=== PATIENT | female | born 1985 | race Caucasian/White ===

== ENCOUNTER 2016-12-28 13:38 | Emergency (ER) | payer OTHER ==
[2016-12-28] MEDS ORDERED: IBUPROFEN 800 MG TABLET PO STA (14:06)
[2016-12-28] MEDS ORDERED: IBUPROFEN 800 MG TABLET PO ONE (14:24)
== END 2016-12-28 15:01 | disposition home or self-care (01) ==
DX: M25.561 Pain in right knee (principal)
CPT/HCPCS: 73564; 99283; A9270

== ENCOUNTER 2017-06-02 09:35 | Emergency (ER) | payer OTHER ==
--- NOTE | 2017-06-02 11:18 | ED Physician Documentation ---
PD HPI HEADACHE - Stated complaint Stated Complaint: MIGRAINE/EAR PX - Chief complaint Chief Complaint: Neuro - History obtained from History obtained from: Patient - History of Present Illness Timing - onset: Last night Timing - onset during: Rest Timing - details: Gradual onset, Still present Worst headache ever?: No: Worst headache ever? Location: Left Quality: Throbbing, Aching Associated symptoms: No: Fever, Nausea, Vomiting Improved by: Dark room, Quiet. No: Rest Worsened by: Light, Noise Contributing factors: No: Anticoagulated, Hypertension, Trauma Similar symptoms before: Diagnosis (migraines) Review of Systems Constitutional: denies: Fever, Chills Eyes: reports: Photophobia. denies: Loss of vision, Decreased vision Ears: reports: Ear pain (left side today). 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 APPRENTICE: Endometrial ablation, Hysterectomy, Oophrectomy HEENT: Tonsil/Adenoidectomy - Present Medications Home Medications: Ambulatory Orders Medication Instructions Recorded Confirmed Albuterol [Ventolin Hfa] 2 puffs PO Q4H PRN 03/31/14 06/02/17 Topiramate [Topiramate ER] 25 mg PO DAILY 10/02/14 06/02/17 Fexofenadine [Corine] 180 mg PO DAILY 02/03/15 06/02/17 Fluticasone/Salmeterol 100/50 1 puffs PO BID 02/03/15 06/02/17 [Advair 100 Mcg/50 Mcg] Divalproex ER [Depakote ER] 250 mg PO DAILY 08/06/16 06/02/17 Montelukast [Singulair] 10 mg PO QPM 08/06/16 06/02/17 Metoclopramide [Reglan] 10 mg PO Q8H PRN #20 tablet 06/02/17 Naproxen [Naprosyn] 500 mg PO BID PRN #20 tablet 06/02/17 - Allergies Allergies/Adverse Reactions: Allergies Allergy/AdvReac Type Severity Reaction Status Date / Time cinnamon Allergy Unknown Verified 12/28/16 13:44 - Social History Does the pt smoke?: No Smoking Status: Never smoker Does the pt drink ETOH?: Yes Does the pt have substance abuse?: No - Immunizations Immunizations are current?: Yes - POLST Patient has POLST: No PD ED PE NORMAL - Vitals Vital signs reviewed: Yes - General General: Alert and oriented X 3, No acute distress, Well developed/nourished - HEENT HEENT: Ears normal, Moist mucous membranes, Pharynx benign - Neck Neck: Supple, no meningeal sign, No adenopathy - Cardiac Cardiac: RRR, No murmur - Respiratory Respiratory: Clear bilaterally - Derm Derm: Normal color, Warm and dry, No rash - Neuro Neuro: Alert and oriented X 3, ward secretary 2-12 intact, No motor deficit, No sensory deficit, Normal speech - Psych Psych: Normal mood, Normal affect Results - Vitals Vitals: Oxygen O2 Source Room air PD MEDICAL DECISION MAKING - ED course Complexity details: re-evaluated patient (feels better; headache about gone. ), considered differential (ear appears okay and no rash. Presume related to migraine, but will see if other symptoms develop. Migrain improved with meds in ED. ), d/w patient Departure - Departure Disposition: 01 Home, Self Care Clinical Impression: Migraine Qualifiers: Migraine type: without aura Status migrainosus presence: without status migrainosus Intractability: not intractable Qualified Code(s): G43.009 - Migraine without aura, not intractable, without status migrainosus Condition: Stable Record reviewed to determine appropriate education?: Yes Instructions: ED Headache Migraine Follow-Up: Kagn Winters MD [Primary Care Provider] - Prescriptions: Naproxen [Naprosyn] 500 mg PO BID PRN #20 tablet PRN Reason: Headache Metoclopramide [Reglan] 10 mg PO Q8H PRN #20 tablet PRN Reason: Headache Comments: Continue usual medications. Drink lots of fluids today. Rest off work today. For subsequent migraines she can try naproxen plus metoclopramide in combination and see if that tapers the migraine over 20 or 30 minutes. Return to the ER as needed. Forms: Activity restrictions Discharge Date/Time: 06/02/17 13:37
[2017-06-02] MEDS ORDERED: SODIUM CHLORIDE 0.9% 1,000 ML IV ONE (11:39)
[2017-06-02] MEDS ORDERED: DEXAMETHASONE 10 MG/ML VIAL IVP STA (11:39)
[2017-06-02] MEDS ORDERED: KETOROLAC 60 MG/2 ML VIAL IVP STA (11:39)
[2017-06-02] MEDS ORDERED: diphenhydrAMINE INJ 50 MG/ML VIAL IVP STA (11:39)
[2017-06-02] MEDS ORDERED: PROCHLORPERAZINE 10 MG/2 ML VIAL IVP STA (11:39)
[2017-06-02] MEDS ORDERED: diphenhydrAMINE INJ 50 MG/ML VIAL ONE (11:47)
[2017-06-02] MEDS ORDERED: KETOROLAC 30 MG/ML VIAL ONE (11:47)
[2017-06-02] MEDS ORDERED: PROCHLORPERAZINE 10 MG/2 ML VIAL ONE (11:47)
[2017-06-02] MEDS ORDERED: DEXAMETHASONE 10 MG/ML VIAL ONE (11:47)
[2017-06-02 13:26] VITALS: BP 109/67
== END 2017-06-02 13:37 | disposition home or self-care (01) ==
LOC: ED 09:35
DX: G43.909 Migraine, unspecified, not intractable, without status migrainosus (principal)
CPT/HCPCS: 96361; 96374; 96375; 99284

== ENCOUNTER 2018-03-15 09:22 | Outpatient (CLI) | payer OTHER ==
--- NOTE | 2018-03-15 13:43 | MRI Report ---
Procedure Date: 03/15/2018 Accession Number: [id number] / [id number] Procedure: MRI - Wrist RT W/O CPT Code: FULL RESULT: EXAM: RIGHT WRIST MRI WITHOUT CONTRAST EXAM DATE: 03/15/2018 09:56 AM. CLINICAL HISTORY: Chronic wrist pain. COMPARISON: None. TECHNIQUE: Multiplanar, multisequence T1-weighted and fluid-sensitive sequences of the wrist without contrast. Other: None. FINDINGS: Bones: There is slightly increased T2 signal in the proximal pole of the lunate. Marrow signal in the remainder of the carpus and the distal radius and ulna appears normal. Ulnar negative variance. Cartilage: The articular cartilage is unremarkable. There is an oblique full-thickness tear through the TFC. There is fluid in the distal radioulnar joint. The anterior and posterior radioulnar ligaments are intact. Ligaments: The scapholunate and lunotriquetral ligaments are intact. The visualized other intrinsic, extrinsic and collateral ligaments are unremarkable. Tendons: The extensor compartment I through and flexor tendons are unremarkable. Musculature: No edema or fatty atrophy. Other: The contents of the carpal tunnel, including the median nerve, are unremarkable. Guyons canal is unremarkable. There is an 8 x 4 x 6 mm ganglion cyst anterior to the radial styloid process. No joint effusions. The subcutaneous tissues are unremarkable. IMPRESSION: 1. Ulnar negative variance. 2. Oblique full-thickness tear of the TFC. 3. Ganglion cyst anterior to the radial styloid process. 4. High T2 signal in the proximal pole of the lunate may indicate prior trauma or low-grade degenerative change secondary to the TFC tear. [facility] MUSCULOSKELETAL RADIOLOGY SECTION
== END 2018-03-15 09:23 | disposition home or self-care (01) ==
LOC: DI 09:22
PROVIDERS: ATTEND Orthopaedic Surgery
DX: S63.591A Other specified sprain of right wrist, initial encounter (principal); M67.431 Ganglion, right wrist

== ENCOUNTER 2018-04-17 14:02 | Emergency (ER) | payer OTHER ==
--- NOTE | 2018-04-17 15:48 | ED Physician Documentation ---
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 Not aware of injury per se. Pain steady.). No: Fall Where injury occurred: Work Timing - onset: Today Timing - details: Abrupt onset, Still present Quality: Pain, Spasm Worsened by: Moving. No: Palpating Associated symptoms: No: Fever, Weakness, Numbness, Hematuria Contributing factors: Work related Similar symptoms before: Has not had sx before Recently seen: Not recently seen Review of Systems Constitutional: denies: Fever Nose: denies: Rhinorrhea / runny nose, Congestion Throat: denies: Sore throat Cardiac: denies: Chest pain / pressure, Palpitations Respiratory: denies: Dyspnea, Cough GI: reports: Nausea. 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 DIRECTOR: Endometrial ablation, Hysterectomy, Oophrectomy HEENT: Tonsil/Adenoidectomy - Present Medications Home Medications: Ambulatory Orders Medication Instructions Recorded Confirmed Albuterol [Ventolin Hfa] 2 puffs PO Q4H PRN 03/31/14 06/02/17 Fexofenadine [Corine] 180 mg PO DAILY 02/03/15 06/02/17 Fluticasone/Salmeterol 100/50 1 puffs PO BID 02/03/15 06/02/17 [Advair 100 Mcg/50 Mcg] Montelukast [Singulair] 10 mg PO QPM 08/06/16 06/02/17 Metoclopramide [Reglan] 10 mg PO Q8H PRN #20 tablet 06/02/17 HYDROcod/ACETAM 5/325 [[place] 5/325] 1 tab PO Q6H PRN #15 tablet 04/17/18 Methocarbamol [Robaxin] 500 mg PO Q6H PRN #25 tablet 04/17/18 Naproxen [Naprosyn] 500 mg PO BID PRN #20 tablet 04/17/18 - Allergies Allergies/Adverse Reactions: Allergies Allergy/AdvReac Type Severity Reaction Status Date / Time cinnamon Allergy Unknown Verified 04/17/18 14:06 - Social History Does the pt smoke?: No Smoking Status: Never smoker Does the pt drink ETOH?: Yes Does the pt have substance abuse?: No - Immunizations Immunizations are current?: Yes - POLST Patient has POLST: No PD ED PE NORMAL - Vitals Vital signs reviewed: Yes - General General: Alert and oriented X 3, No acute distress, Well developed/nourished - Cardiac Cardiac: RRR, No murmur - Respiratory Respiratory: Clear bilaterally - Abdomen Abdomen: Soft, Non tender - Back Back: No spinal TTP, Other (tender right flank and upper lumbar area. ) - Derm Derm: Normal color, Warm and dry - Extremities Extremities: No deformity, No tenderness to palpate - Neuro Neuro: Alert and oriented X 3, No motor deficit, No sensory deficit, Normal speech Results - Vitals Vitals: Oxygen O2 Source Room air - Rads (name of study) kub CT Radiology: Prelim report reviewed (no stones nor other acute process) PD MEDICAL DECISION MAKING - ED course Complexity details: considered differential (abrupt pain without obvious injury per se. Eval for kidney process and stones, but no other findings. ), d/w patient - Sepsis Event Vital Signs: Oxygen O2 Source Room air Departure - Departure Disposition: 01 Home, Self Care Clinical Impression: Acute back pain Qualifiers: Back pain location: low back pain Back pain laterality: right Sciatica presence : without sciatica Qualified Code(s): M54.5 - Low back pain Condition: Stable Record reviewed to determine appropriate education?: Yes Instructions: ED Low Back Pain Injury Follow-Up: DK CALL DO [Primary Care Provider] - Prescriptions: HYDROcod/ACETAM 5/325 [[place] 5/325] 1 tab PO Q6H PRN #15 tablet PRN Reason: Pain Methocarbamol [Robaxin] 500 mg PO Q6H PRN #25 tablet PRN Reason: Spasms Naproxen [Naprosyn] 500 mg PO BID PRN #20 tablet PRN Reason: Pain Comments: Presume muscular strain/spasm. No signs of kidney stone or other cause on CT. Rest off work for 2-3 days. Heat and gentle stretching to the area. Naproxen or ibuprofen 2-3 times a day for inflammation and pain. Add Robaxin muscle relaxant. Add Tylenol or hydrocodone if needed for pain. Recheck if not improved over the next few days, call tomorrow with your PCP for an appointment in a few days. Forms: Activity restrictions Discharge Date/Time: 04/17/18 18:01
[2018-04-17] MEDS ORDERED: MORPHINE 10 MG/ML VIAL IM STA (16:07)
[2018-04-17] MEDS ORDERED: KETOROLAC 30 MG/ML VIAL IM STA (16:07)
[2018-04-17] MEDS ORDERED: METHOCARBAMOL 500 MG TABLET PO STA (16:07)
--- NOTE | 2018-04-17 17:01 | CT Report ---
Procedure Date: 04/17/2018 Accession Number: [id number] / [id number] Procedure: CT - KUB CPT Code: FULL RESULT: EXAM: CT ABDOMEN AND PELVIS EXAM DATE: 04/17/2018 04:32 PM. CLINICAL HISTORY: Right flank pain and nausea which began today. COMPARISONS: 12/02/2015. TECHNIQUE: Routine helical CT imaging was performed through the abdomen and pelvis. IV contrast: None. Enteric contrast: No. Reconstructions: Coronal and sagittal. In accordance with CT protocol optimization, one or more of the following dose reduction techniques were utilized for this exam: automated exposure control, adjustment of mA and/or KV based on patient size, or use of iterative reconstructive technique. FINDINGS: Lung Bases: Unremarkable. Liver: Normal. No masses. Gallbladder/Bile Ducts: Cholecystectomy. No biliary duct dilatation. Spleen: Normal. Pancreas: Normal. Adrenal Glands: Normal. Kidneys: Normal. No masses or hydronephrosis. No stones. Normal ureters. Peritoneal Cavity/Bowel: Normal. No free fluid, free air or adenopathy. No masses or acute inflammatory process. The appendix is well visualized and normal. Pelvic Organs: Piercing anterior aspect of the vulva. The bladder and visualized pelvic organs are within normal limits. Vasculature: No aneurysms or other significant abnormality. Bones: No significant abnormality. Other: None. IMPRESSION: Stable, unremarkable exam. No radiographic explanation for this lady's presenting symptoms. [facility]
[2018-04-17 18:03] VITALS: BP 142/99
== END 2018-04-17 18:01 | disposition home or self-care (01) ==
LOC: ED 14:02
DX: M54.5 Low back pain (principal); J45.909 Unspecified asthma, uncomplicated
CPT/HCPCS: 74176; 96372; 99283; A9270

== ENCOUNTER 2018-08-27 06:56 | Emergency (ER) | payer OTHER ==
[2018-08-27] MEDS ORDERED: fentaNYL 100 MCG/2 ML VIAL IVP STA ×2 (07:19→09:22)
[2018-08-27] MEDS ORDERED: KETOROLAC 15 MG/ML VIAL IVP STA (07:19)
[2018-08-27] MEDS ORDERED: SODIUM CHLORIDE 0.9% 1,000 ML IV ONE (07:19)
[2018-08-27] MEDS ORDERED: ONDANSETRON 4 MG/2 ML VIAL IVP STA (07:20)
--- NOTE | 2018-08-27 07:28 | ED Physician Documentation ---
History of Present Illness - Stated complaint Stated Complaint: RT SIDE PX - Chief complaint Chief Complaint: Abd Pain - Additonal information Additional information: 33-year-old female presents the emergency department with right lower flank pain which radiates into her abdomen. The patient reports intermittent sharp stabbing pain for the past 4-5 days which has progressively worsened. There is no vomiting, diarrhea, dysuria, hematuria, vaginal discharge or continuous abdominal pain. No triggering factors. No relieving factors. No other associated symptoms. 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 - Past Surgical History Past Surgical History: Yes General: Cholecystectomy /JUDGE: Endometrial ablation, Hysterectomy, Oophrectomy HEENT: Tonsil/Adenoidectomy - Present Medications Home Medications: Ambulatory Orders Medication Instructions Recorded Confirmed Albuterol [Ventolin Hfa] 2 puffs PO Q4H PRN 03/31/14 06/02/17 Fexofenadine [Corine] 180 mg PO DAILY 02/03/15 06/02/17 Fluticasone/Salmeterol 100/50 1 puffs PO BID 02/03/15 06/02/17 [Advair 100 Mcg/50 Mcg] Montelukast [Singulair] 10 mg PO QPM 08/06/16 06/02/17 Metoclopramide [Reglan] 10 mg PO Q8H PRN #20 tablet 06/02/17 HYDROcod/ACETAM 5/325 [[place] 5/325] 1 tab PO Q6H PRN #15 tablet 04/17/18 Methocarbamol [Robaxin] 500 mg PO Q6H PRN #25 tablet 04/17/18 Naproxen [Naprosyn] 500 mg PO BID PRN #20 tablet 04/17/18 Hydrocodone/Acetaminophen [[place] 1 each PO Q6HR PRN #10 tablet 08/27/18 5-325 Tablet] Naproxen 500 mg PO BID PRN #60 tablet 08/27/18 Ondansetron HCl [Zofran] 4 mg PO Q6HR PRN #30 tablet 08/27/18 - Allergies Allergies/Adverse Reactions: Allergies Allergy/AdvReac Type Severity Reaction Status Date / Time cinnamon Allergy Unknown Verified 04/17/18 14:06 - Social History Does the pt smoke?: No Smoking Status: Never smoker Does the pt drink ETOH?: Yes Does the pt have substance abuse?: No - Immunizations Immunizations are current?: Yes - POLST Patient has POLST: No PD ED PE NORMAL - General General: Alert and oriented X 3, No acute distress - HEENT HEENT: Atraumatic, PERRL, Moist mucous membranes - Neck Neck: Supple, no meningeal sign - Cardiac Cardiac: RRR, Strong equal pulses - Respiratory Respiratory: No respiratory distress, Clear bilaterally - Abdomen Abdomen: Soft, Non tender, Non distended, Other (The patient has right lower flank tenderness) - Back Back: No CVA TTP - Derm Derm: Normal color - Extremities Extremities: No deformity - Neuro Neuro: Alert and oriented X 3, Normal speech - Psych Psych: Normal mood Results - Vitals Vitals: Vital Signs - 24 hr 08/27/18 08/27/18 08/27/18 07:02 08:15 09:06 Temperature 36.1 C L Heart Rate 72 58 L 60 Respiratory 16 16 16 Rate Blood Pressure 124/89 H 106/78 104/75 O2 Saturation 100 100 100 08/27/18 10:39 Temperature Heart Rate 58 L Respiratory 16 Rate Blood Pressure 104/71 O2 Saturation 99 Oxygen O2 Source Room air - Labs Labs: Laboratory Tests 08/27/18 08/27/18 08/27/18 07:41 07:41 09:13 WBC 5.5 RBC 4.55 Hgb 13.7 Hct 39.7 MCV 87.4 MCH 30.2 MCHC 34.5 RDW 13.2 Plt Count 222 MPV 8.8 Neut # (Auto) 3.8 Lymph # (Auto) 1.0 L [place] # (Auto) 0.4 Eos # (Auto) 0.3 Baso # (Auto) 0.0 Absolute Nucleated RBC 0.00 Nucleated RBC % 0.0 Sodium 133 L Potassium 4.3 Chloride 103 Carbon Dioxide 27 Anion Gap 3.0 L BUN 19 Creatinine 0.5 Estimated GFR (MDRD) 142 Glucose 105 H Calcium 8.7 Total Bilirubin 0.7 AST 18 ALT 16 Alkaline Phosphatase 39 L Total Protein 7.3 Albumin 4.4 Globulin 2.9 Albumin/Globulin Ratio 1.5 Lipase 24 Urine Color YELLOW Urine Clarity CLEAR Urine pH 5.5 Ur Specific [place] 1.025 Urine Protein NEGATIVE Urine Glucose (UA) NEGATIVE Urine Ketones 15 H Urine Occult Blood NEGATIVE Urine Nitrite NEGATIVE Urine Bilirubin NEGATIVE Urine Urobilinogen 0.2 (NORMAL) Ur Leukocyte Esterase NEGATIVE Ur Microscopic Review NOT INDICATED Urine Culture Comments NOT INDICATED - Rads (name of study) US Radiology: Final report received (IMPRESSION: 1. Interval enlarged right ovary containing a simple cyst, 6.1 cm in the maximum dimension without evidence of right ovarian torsion, which could be the dominate follicle cyst; however, a low aggressive or benign cystic neoplasm cannot be excluded; recommend clinical follow-up and follow-up pelvic ultrasound in 6 weeks. 2. Interval status post left oophorectomy and hysterectomy, unremarkable.) CT abd/pelvis Radiology: Final report received (IMPRESSION: 1.No urinary tract stones or obstruction. 2. Normal appendix. No bowel obstruction or inflammatory change. 3. A new medial right pelvic cystic mass, likely from the right ovary, 6.3 cm in maximum dimension, concerning for ovarian torsion versus cystic ovarian neoplasm. Recommend urgent pelvic ultrasound follow-up. 4. Status post cholecystectomy, unremarkable. ) PD MEDICAL DECISION MAKING - ED course ED course: The patient's workup does not reveal an etiology that would necessitate admissio n to the hospital or acute surgical consultation. On reevaluation the patient is resting comfortably in her pain appears to be under control. Presently the patient appears appropriate for discharge and ongoing outpatient management. I discussed with her the findings on the ultrasound and CT scan. I discussed with her the recommendations from the radiologist. I discussed warning signs and recommended returning to the emergency department for any worsening or any concerns. Departure - Departure Disposition: 01 Home, Self Care Clinical Impression: Flank pain, acute Abdominal pain Qualifiers: Abdominal location: right lower quadrant Qualified Code(s): R10.31 - Right lower quadrant pain Condition: Good Instructions: Abdominal Pain, Cysts Ovarian Follow-Up: DK CALL, [Primary Care Provider] - Within 1 week (Please have your primary care repeat an ultrasound in 6 weeks to make sure that the cyst resolves.) Prescriptions: Hydrocodone/Acetaminophen [[place] 5-325 Tablet] 1 each PO Q6HR PRN #10 tablet PRN Reason: Pain Ondansetron HCl [Zofran] 4 mg PO Q6HR PRN #30 tablet PRN Reason: Nausea / Vomiting Naproxen 500 mg PO BID PRN #60 tablet PRN Reason: Pain Comments: Please return to the emergency department for worsening symptoms or any concerns
[2018-08-27 07:46] LABS: BASOPHILS % (AUTO) 0.7 %; EOSINOPHILS # (AUTO) 0.3 10^3/uL (0.0-0.7); EOSINOPHILS % (AUTO) 4.8 %; HGB - HEMOGLOBIN 13.7 g/dL (12.0-16.0); LYMPHOCYTES % (AUTO) 18.1 %; MEAN CORPUSCULAR HEMOGLOBIN 30.2 pg (27.0-31.0); MEAN CORPUSCULAR HGB CONC 34.5 g/dL (32.0-36.0); MEAN CORPUSCULAR VOLUME 87.4 fL (81.0-99.0); MEAN PLATELET VOLUME 8.8 fL (7.9-10.8); MONOCYTES # (AUTO) 0.4 10^3/uL (0.0-1.0); MONOCYTES % (AUTO) 6.5 %; NEUTROPHILS # (AUTO) 3.8 10^3/uL (1.5-6.6); NEUTROPHILS % (AUTO) 69.9 %; PLT - PLATELET COUNT 222 10^3/uL (130-450); RED BLOOD COUNT 4.55 10^6/uL (4.20-5.40); RED CELL DISTRIBUTION WIDTH 13.2 % (12.0-15.0); WHITE BLOOD COUNT 5.5 x10^3/uL (4.8-10.8)
[2018-08-27 07:58] LABS: ALBUMIN 4.4 g/dL (3.2-5.5); ALBUMIN/GLOBULIN RATIO 1.5 (1.0-2.2); BILIRUBIN,TOTAL 0.7 mg/dL (0.2-1.0); CALCIUM 8.7 mg/dL (8.5-10.3); CREATININE 0.5 mg/dL (0.4-1.0); TOTAL PROTEIN 7.3 g/dL (6.7-8.2)
--- NOTE | 2018-08-27 08:24 | CT Report ---
Reason: flank pain Procedure Date: 08/27/2018 Accession Number: [id number] / [id number] Procedure: CT - Abdomen/Pelvis W/O CPT Code: FULL RESULT: EXAM: CT ABDOMEN AND PELVIS (CT KUB) EXAM DATE: 08/27/2018 07:51 AM. CLINICAL HISTORY: Right low abdominal pain, flank pain for 3-4 days. COMPARISONS: KUB 04/17/2018. TECHNIQUE: Routine axial helical CT imaging was performed through the abdomen and pelvis without IV contrast. Reconstructions: Coronal and sagittal. In accordance with CT protocol optimization, one or more of the following dose reduction techniques were utilized for this exam: automated exposure control, adjustment of mA and/or KV based on patient size, or use of iterative reconstructive technique. FINDINGS: Lung Bases: Unremarkable. Right Kidney/Ureter: No stones, hydronephrosis, or hydroureter. No perinephric fat stranding. Left Kidney/Ureter: No stones, hydronephrosis, or hydroureter. No perinephric fat stranding. Other Solid Organs: Noncontrast images of the solid organs are grossly unremarkable. Gallbladder/Bile Ducts: Status post cholecystectomy again noted, unremarkable. Peritoneal Cavity: No free fluid, free air or destiny adenopathy. Bowel is grossly unremarkable. The appendix is normal. Pelvic Organs: There is a new cystic mass in the medial posterior right pelvis, likely connected with the right ovarian vein, abutting the posterior portion of the uterus, 6 x 6.3 x 4.5 cm. No bladder stones or wall thickening. Noncontrast images of the visualized pelvic organs are unremarkable. Vasculature: Unremarkable. Other: No hernia seen. IMPRESSION: 1.No urinary tract stones or obstruction. 2. Normal appendix. No bowel obstruction or inflammatory change. 3. A new medial right pelvic cystic mass, likely from the right ovary, 6.3 cm in maximum dimension, concerning for ovarian torsion versus cystic ovarian neoplasm. Recommend urgent pelvic ultrasound follow-up. 4. Status post cholecystectomy, unremarkable. CRITICAL RESULT: The finding of a new medial right pelvic cystic mass, concerning for right ovarian torsion versus right ovarian neoplasm was discussed on the phone with clinical provider, Dr. Sasha Jason on 08/27/2018 at 8:28 AM. JOSE R
[2018-08-27 09:17] LABS: BILIRUBIN,URINE NEGATIVE (NEGATIVE); GLUCOSE, URINE (UA) NEGATIVE (NEGATIVE); KETONES,URINE (UA) 15 mg/dL (NEGATIVE); LEUKOCYTE ESTERASE, URINE NEGATIVE (NEGATIVE); NITRITE,URINE NEGATIVE (NEGATIVE); OCCULT BLOOD,URINE NEGATIVE (NEGATIVE); PH,URINE 5.5 PH (5.0-7.5); PROTEIN,URINE NEGATIVE (NEGATIVE); UROBILINOGEN,URINE 0.2 (NORMAL) E.U./dL (NORMAL)
[2018-08-27 09:18] LABS: CLARITY,URINE CLEAR (CLEAR)
--- NOTE | 2018-08-27 11:34 | Ultrasound Report ---
Reason: pelvic pain, R Procedure Date: 08/27/2018 Accession Number: [id number] / [id number] Procedure: US - Pelvic w/Transvag+Doppler Comp CPT Code: FULL RESULT: EXAM: PELVIC ULTRASOUND EXAM DATE: 08/27/2018 10:15 AM. CLINICAL HISTORY: Pelvic pain on the right side, status post hysterectomy and left oophorectomy; right pelvic cystic mass shown in the same day abdominopelvic CT, follow-up. COMPARISON: 04/01/2015. TECHNIQUE: Realtime transabdominal pelvic scan performed to identify the uterus and adnexa and as an overview of other pelvic structures, followed by transvaginal scan to provide greater detail of the uterus and adnexa, with static image documentation. FINDINGS: Uterus: Surgically absent, unremarkable. Right Ovary: 6.8 x 4.5 x 6.7 cm, volume 107.2 cc, previously 9 cc. There is a simple cystic lesion, 6.1 x 5.4 x 4.3 cm; the small peripheral solid parenchyma of the right ovary demonstrated normal Doppler blood flow. Left Ovary: Surgically absent; no left adnexal mass. Free Fluid: None. IMPRESSION: 1. Interval enlarged right ovary containing a simple cyst, 6.1 cm in the maximum dimension without evidence of right ovarian torsion, which could be the dominate follicle cyst; however, a low aggressive or benign cystic neoplasm cannot be excluded; recommend clinical follow-up and follow-up pelvic ultrasound in 6 weeks. 2. Interval status post left oophorectomy and hysterectomy, unremarkable. [facility]
[2018-08-27 12:11] VITALS: BP 104/75
== END 2018-08-27 12:14 | disposition home or self-care (01) ==
LOC: ED 06:56
DX: N83.201 Unspecified ovarian cyst, right side (principal)
CPT/HCPCS: 36415; 74176; 76830; 76856; 80053; 81001; 81003; 83690; 85025; 87086; 93975; 96361; 96374; 96376; 99283

== ENCOUNTER 2018-09-18 12:41 | Day surgery (SDC) | payer OTHER ==
--- NOTE | 2018-09-18 15:40 | ED Physician Documentation ---
History of Present Illness - Stated complaint Stated Complaint: FEMALE - Chief complaint Chief Complaint: Abd Pain - Additonal information Additional information: hx from pt 33 f s/p hyst L ooph jeanine known 6 cm R ovarian cyst abrupt onset abd pain this AM 730 AM no fever no vag bleed feels faint fears torsion Review of Systems Constitutional: denies: Fever Cardiac: denies: Chest pain / pressure Respiratory: denies: Dyspnea GI: reports: Abdominal Pain : reports: Hysterectomy. denies: Discharge, Vaginal bleeding Endocrine: denies: Easy bruising / bleeding Immunocompromised: denies: Immunocompromised PD PAST MEDICAL HISTORY - Past Medical History Respiratory: Asthma Neuro: Migraines Endocrine/Autoimmune: None WOOD GLUER: Ovarian cysts - Past Surgical History Past Surgical History: Yes General: Cholecystectomy /WOOD GLUER: Endometrial ablation, Hysterectomy, Oophrectomy HEENT: Tonsil/Adenoidectomy - Present Medications Home Medications: Ambulatory Orders Medication Instructions Recorded Confirmed Fexofenadine [Corine] 180 mg PO DAILY 02/03/15 09/18/18 Montelukast [Singulair] 10 mg PO QPM 08/06/16 09/18/18 Cholecalciferol (Vitamin D3) 1 cap PO DAILY 09/18/18 09/18/18 [Vitamin D3] Loratadine [Claritin] 10 mg PO DAILY 09/18/18 09/18/18 - Allergies Allergies/Adverse Reactions: Allergies Allergy/AdvReac Type Severity Reaction Status Date / Time cinnamon Allergy Unknown Verified 09/18/18 17:28 - Social History Does the pt smoke?: No Smoking Status: Never smoker Does the pt drink ETOH?: Yes Does the pt have substance abuse?: No - Immunizations Immunizations are current?: Yes - POLST Patient has POLST: No PD ED PE NORMAL - Vitals Vital signs reviewed: Yes - Cardiac Cardiac: RRR - Respiratory Respiratory: No respiratory distress - Abdomen Abdomen: Soft, Other (severe TTP diffusely with rebound and vol guarding) - Derm Derm: Normal color - Neuro Neuro: Alert and oriented X 3 Results - Vitals Vitals: Vital Signs - 24 hr 09/18/18 09/18/18 09/18/18 13:08 16:52 17:46 Temperature 36.7 C 36.2 C L Heart Rate 92 77 81 Respiratory 16 16 14 Rate Blood Pressure 144/82 H 122/83 H 111/81 H O2 Saturation 100 100 98 09/18/18 09/18/18 09/18/18 18:30 20:03 20:05 Temperature 36.9 C 36.8 C Heart Rate 80 106 H 80 Respiratory 14 15 17 Rate Blood Pressure 128/89 H 141/85 H 125/84 H O2 Saturation 100 100 100 09/18/18 20:10 Temperature 36.5 C Heart Rate 80 Respiratory 15 Rate Blood Pressure 133/85 H O2 Saturation 100 Oxygen O2 Source Room air - Labs Labs: Laboratory Tests 09/18/18 09/18/18 09/18/18 16:00 16:00 16:00 WBC 11.1 H RBC 4.76 Hgb 14.3 Hct 41.4 MCV 86.9 MCH 30.0 MCHC 34.5 RDW 13.0 Plt Count 274 MPV 8.6 Neut # (Auto) 9.7 H Lymph # (Auto) 1.0 L [place] # (Auto) 0.4 Eos # (Auto) 0.0 Baso # (Auto) 0.0 Absolute Nucleated RBC 0.00 Nucleated RBC % 0.0 Sodium 131 L Potassium 3.8 Chloride 99 L Carbon Dioxide 23 Anion Gap 9.0 BUN 14 Creatinine 0.5 Estimated GFR (MDRD) 142 Glucose 99 Calcium 9.0 Urine Color Urine Clarity Urine pH Ur Specific [place] Urine Protein Urine Glucose (UA) Urine Ketones Urine Occult Blood Urine Nitrite Urine Bilirubin Urine Urobilinogen Ur Leukocyte Esterase Ur Microscopic Review Urine Culture Comments Urine HCG, Qual Blood Type O POSITIVE Antibody Screen NEGATIVE 09/18/18 16:53 WBC RBC Hgb Hct MCV MCH MCHC RDW Plt Count MPV Neut # (Auto) Lymph # (Auto) [place] # (Auto) Eos # (Auto) Baso # (Auto) Absolute Nucleated RBC Nucleated RBC % Sodium Potassium Chloride Carbon Dioxide Anion Gap BUN Creatinine Estimated GFR (MDRD) Glucose Calcium Urine Color YELLOW Urine Clarity CLEAR Urine pH 6.5 Ur Specific [place] 1.020 Urine Protein NEGATIVE Urine Glucose (UA) NEGATIVE Urine Ketones >=80 H Urine Occult Blood NEGATIVE Urine Nitrite NEGATIVE Urine Bilirubin NEGATIVE Urine Urobilinogen 0.2 (NORMAL) Ur Leukocyte Esterase NEGATIVE Ur Microscopic Review NOT INDICATED Urine Culture Comments NOT INDICATED Urine HCG, Qual NEGATIVE Blood Type Antibody Screen - Rads (name of study) pelvic sono with doppler Radiology: See rad report (per vrbal from Dr Almonte radiology who came over to the ER to tell me the results in person there is some arterial blood flow but it is poor flow and concerning for torsion and also large hemorrhagic cyst with FF - written report states nl blood flow - so i called to confirm impression and rad states arterial flow present but decreased and he has sig concern for torsion - - Dr Mazariegos also spoke directly with radiology) PD MEDICAL DECISION MAKING - ED course ED course: severe apin onset 0730 pt arrived 1241 triaged 1308 triage nurse alerted EMP of concern for torsion sono ordered from triage at 1332 sono done at 1441 verbal rad report to me from Dr Almonte at 1525 (+ for torsion and FF per Dr Almonte) info to charge nurse who expedited pt pt to room 1541 I saw pt approx 1545 - gave pain meds, ordered preop labs, called OBGYN Dr Mazariegos about 1600 - was in L&D with other pts but came to ER promptly Dr Mazariegos to ER approx 1630 pt NPO since 5 AM prepped for OR anesthesia to ER 1745 pt to OR 1830 Departure - Departure Disposition: ED Transfer to [facility] Clinical Impression: Ovarian torsion Condition: Fair Discharge Date/Time: 09/18/18 18:30
[2018-09-18] MEDS ORDERED: ONDANSETRON 4 MG/2 ML VIAL IVP STA (15:42)
[2018-09-18] MEDS ORDERED: HYDROmorphone 1 MG/ML CARPUJECT IVP STA ×3 (15:42→16:49)
[2018-09-18] MEDS ORDERED: SODIUM CHLORIDE 0.9% 1,000 ML IV ONE (15:42)
--- NOTE | 2018-09-18 15:42 | Ultrasound Report ---
Reason: pelvic pain, R Procedure Date: 09/18/2018 Accession Number: [id number] / [id number] Procedure: US - Pelvic w/Transvag+Doppler Comp CPT Code: FULL RESULT: EXAM: PELVIC ULTRASOUND EXAM DATE: 09/18/2018 03:07 PM. CLINICAL HISTORY: Pelvic pain, R. COMPARISON: Pelvic ultrasound 08/27/2018. CT abdomen/pelvis without contrast 08/27/2018. TECHNIQUE: Realtime transabdominal pelvic scan performed to identify the uterus and adnexa and as an overview of other pelvic structures, followed by transvaginal scan to provide greater detail of the uterus and adnexa, with static image documentation. FINDINGS: Uterus: Status post hysterectomy. Right Ovary: The ovary now measures 8.8 x 4.0 x 7.1 cm (previously 6.8 x 4.5 x 6.7cm), volume 130 cc. There are now 2 cysts measuring 5 x 4 x 5 cm and 2.9 x 2.4 x 2.7 cm respectively, the smaller cyst demonstrating internal hemorrhage. Color Doppler demonstrates preserved flow within the ovary. Peripherally, there is arterial flow with low resistive index, 0.76 by spectral Doppler. Venous flow is detected. Left Ovary: Status post left salpingo-oophorectomy. Free Fluid: A small amount of free fluid is identified. Other: None. IMPRESSION: Enlarged right ovary with cysts, one of which is hemorrhagic, and a small amount of free pelvic fluid. While there is currently detectable arterial and venous Doppler flow, torsion/detorsion and partial torsion are not excluded. CRITICAL RESULT: The findings were discussed with Dr. Malin on 09/18/2018 at 3:25 PM. RADIA
[2018-09-18 16:15] LABS: BASOPHILS % (AUTO) 0.3 %; EOSINOPHILS % (AUTO) 0.3 %; HGB - HEMOGLOBIN 14.3 g/dL (12.0-16.0); LYMPHOCYTES % (AUTO) 8.9 %; MEAN CORPUSCULAR HGB CONC 34.5 g/dL (32.0-36.0); MEAN CORPUSCULAR VOLUME 86.9 fL (81.0-99.0); MEAN PLATELET VOLUME 8.6 fL (7.9-10.8); MONOCYTES # (AUTO) 0.4 10^3/uL (0.0-1.0); MONOCYTES % (AUTO) 3.3 %; NEUTROPHILS # (AUTO) 9.7 10^3/uL (1.5-6.6); NEUTROPHILS % (AUTO) 87.2 %; PLT - PLATELET COUNT 274 10^3/uL (130-450); RED BLOOD COUNT 4.76 10^6/uL (4.20-5.40); WHITE BLOOD COUNT 11.1 x10^3/uL (4.8-10.8)
[2018-09-18] MEDS ORDERED: HYDROmorphone 2 MG/ML VIAL ONE (16:19)
[2018-09-18 16:26] LABS: CREATININE 0.5 mg/dL (0.4-1.0)
[2018-09-18] MEDS ORDERED: diphenhydrAMINE INJ 50 MG/ML VIAL IVP STA (16:49)
[2018-09-18 17:02] LABS: BILIRUBIN,URINE NEGATIVE (NEGATIVE); CLARITY,URINE CLEAR (CLEAR); GLUCOSE, URINE (UA) NEGATIVE (NEGATIVE); KETONES,URINE (UA) >=80 mg/dL (NEGATIVE); LEUKOCYTE ESTERASE, URINE NEGATIVE (NEGATIVE); NITRITE,URINE NEGATIVE (NEGATIVE); OCCULT BLOOD,URINE NEGATIVE (NEGATIVE); PH,URINE 6.5 PH (5.0-7.5); PROTEIN,URINE NEGATIVE (NEGATIVE); UROBILINOGEN,URINE 0.2 (NORMAL) E.U./dL (NORMAL)
[2018-09-18 17:04] LABS: HCG UR QUAL NEGATIVE
[2018-09-18] MEDS ORDERED: LACTATED RINGERS 1,000 ML IV STA (17:22)
[2018-09-18] MEDS ORDERED: ceFAZolin 2 GM in SODIUM CHLORIDE 0.9% MINIBAG 100 ML IV STA (17:33)
[2018-09-18] MEDS ORDERED: ceFAZolin 2 GM/50 ML 2 GM/50 ML BAG IV SCH (17:45)
--- NOTE | 2018-09-18 17:47 | ANESTHESIA ---
Pre-Anesthesia VS, & Labs - Diagnosis Right ovarian torsion - Procedure diagnostic laparoscopy Vital Signs: Temp Pulse Resp BP Pulse Ox 36.7 C 77 16 122/83 H 100 09/18/18 13:08 09/18/18 16:52 09/18/18 16:52 09/18/18 16:52 09/18/18 16:52 Height 5 ft 2.5 in Weight (kg) 69.4 kg Body Mass Index 27.5 - NPO Last Food Intake: 529 - Is Patient ?: No - Lab Results Current Lab Results: Laboratory Tests 09/18/18 16:00: Blood Type O POSITIVE, Antibody Screen NEGATIVE 09/18/18 16:00: Sodium 131 L, Potassium 3.8, Chloride 99 L, Carbon Dioxide 23, Anion Gap 9.0, BUN 14, Creatinine 0.5, Estimated GFR (MDRD) 142, Glucose 99, Calcium 9.0 09/18/18 16:00: WBC 11.1 H, RBC 4.76, Hgb 14.3, Hct 41.4, MCV 86.9, MCH 30.0, MCHC 34.5, RDW 13.0, Plt Count 274, MPV 8.6, Neut # (Auto) 9.7 H, Lymph # (Auto) 1.0 L, [place] # (Auto) 0.4, Eos # (Auto) 0.0, Baso # (Auto) 0.0, Absolute Nucl eated RBC 0.00, Nucleated RBC % 0.0 Fish Bones: 09/18/18 16:00 09/18/18 16:00 Home Medications and Allergies Home Medications: Ambulatory Orders Cholecalciferol (Vitamin D3) [Vitamin D3] 1 cap PO DAILY 09/18/18 Loratadine [Claritin] 10 mg PO DAILY 09/18/18 Active Medications Lactated Ringer's (Lr) 1,000 mls @ 100 mls/hr IV .Q10H STA Stop: 09/19/18 03:21 Last Admin: 09/18/18 17:29 Dose: 100 mls/hr Cefazolin Sodium/Dextrose (Ancef 2 Gm/50 Ml) 2 gm in 50 mls @ 100 mls/hr IV ONCE YOLANDA Stop: 09/18/18 19:00 Fexofenadine [Corine] 180 mg PO DAILY 05/11/15 Montelukast [Singulair] 10 mg PO QPM 08/06/16 Cholecalciferol (Vitamin D3) [Vitamin D3] 1 cap PO DAILY 09/18/18 Loratadine [Claritin] 10 mg PO DAILY 09/18/18 Allergies/Adverse Reactions: Allergies Allergy/AdvReac Type Severity Reaction Status Date / Time cinnamon Allergy Unknown Verified 09/18/18 17:28 Anes History & Medical History - Anesthetic History Anesthesia Complications: reports: No previous complications - Medical History Cardiovascular: reports: None Pulmonary: reports: Asthma (last used inhaler several months ago) Gastrointestinal: reports: None Urinary: reports: None Neuro: reports: Migraines Musculoskeletal: reports: None Endocrine/Autoimmune: reports: None Blood Disorders: reports: None Skin: reports: None Smoking Status: Never smoker Psychosocial: reports: No issues indicated - Surgical History General: Cholecystectomy Eyes Ears Nose Throat (EENT): Tonsil/Adenoidectomy Gynecologic: Endometrial ablation, Hysterectomy, Oophrectomy Exam General: Alert, Oriented x3, Cooperative, No acute distress Dental: WNL Mouth Openin Fingerbreadth Mallampati classification: I Thyromental Distance: 4-6 cm Respiratory: Lungs clear, Normal breath sounds, No respiratory distress, No accessory muscle use Cardiovascular: Regular rate, Normal S1, Normal S2, No murmurs Mental/Cognitive Status: Alert/Oriented X3, Normal for patient Cognitive Status: Within normal limits Plan Anesthesia Type: General Consent for Procedure(s) Verified and Reviewed: Yes Code Status: Attempt Resuscitation ASA classification: 2-Mild systemic disease Is this case an emergency?: Yes
[2018-09-18] MEDS ORDERED: BUPIVACAINE 0.25%-EPI 1:200000 PF 30 ML VIAL ONE (18:04)
[2018-09-18] MEDS ORDERED: BUPIVACAINE 0.25%-EPI 1:200000 PF 30 ML VIAL SUBQ ONE ×2 (18:59)
[2018-09-18] MEDS ORDERED: LACTATED RINGERS 1,000 ML IV ONE ×2 (19:05→20:18)
[2018-09-18] MEDS ORDERED: NEOSTIGMINE 1 MG/1 ML 10 ML MDV IVP ONE (19:49)
[2018-09-18] MEDS ORDERED: ROCURONIUM 50 MG/5 ML VIAL IVP ONE (19:49)
[2018-09-18] MEDS ORDERED: PROPOFOL 200 MG/20 ML VIAL IVP ONE (19:49)
[2018-09-18] MEDS ORDERED: GLYCOPYRROLATE 1 MG/5 ML VIAL IVP ONE (19:49)
[2018-09-18] MEDS ORDERED: KETOROLAC 30 MG/ML VIAL IVP ONE (19:49)
[2018-09-18] MEDS ORDERED: ONDANSETRON 4 MG/2 ML VIAL IVP PRN (20:25)
[2018-09-18] MEDS ORDERED: HYDROmorphone 0.5 MG/0.5 ML SYRINGE IVP PRN (20:25)
[2018-09-18] MEDS ORDERED: LORazepam 2 MG/ML VIAL IVP PRN (20:25)
[2018-09-18] MEDS ORDERED: oxyCODONE 5 MG TABLET PO PRN (20:25)
[2018-09-18] MEDS: fentaNYL 100 MCG/2 ML VIAL ONE ×2 (20:25→20:35)
[2018-09-18] MEDS ORDERED: fentaNYL 100 MCG/2 ML VIAL ONE (20:26)
[2018-09-18] MEDS ORDERED: diphenhydrAMINE INJ 50 MG/ML VIAL ONE (20:44)
--- NOTE | 2018-09-18 20:44 | OPERATIVE REPORT ---
Operative Report - General Procedure Date: 09/18/18 Planned Procedure: diagnostic loaproscopy possible right cystectomy vs oopherectomy Pre-Op Diagnosis: torsed right ovary Procedure Performed: laproscopy with right oopherectomy lysis of adhesions Post Op Diagnosis: Torsed right ovary, adhesions - Procedure Note Primary Surgeon: Rodrigo Mazariegos Md Anesthesia Provider: William Andrade CRNA Anesthesia Technique: General ET tube Pathology: right ovary cyst fluid Estimated Blood Loss (mL): 5 Complications: none - Other Other Information/Narrative: dictation # [id number]
[2018-09-18] MEDS ORDERED: HYDROmorphone 0.5 MG/0.5 ML SYRINGE ONE (20:48)
[2018-09-18] MEDS: HYDROcod/ACETAM 5/325 MG TABLET PO PRN (22:43)
[2018-09-18] MEDS ORDERED: diphenhydrAMINE 25 MG CAPSULE PO PRN (23:38)
[2018-09-18] MEDS ORDERED: SODIUM CHLORIDE FLUSH 0.9% 10 ML SYRINGE ONE (23:55)
--- NOTE | 2018-09-19 01:13 | PREOP HISTORY & PHYSICAL ---
DATE OF SERVICE: 09/18/2018 Physician: Rodrigo Mazariegos MD IDENTIFICATION: A 33-year-old G3, P3, female. LAST MENSTRUAL PERIOD: Status post hysterectomy. CHIEF COMPLAINT: Right lower quadrant pain. HISTORY OF PRESENT ILLNESS: Patient developed abrupt onset right lower quadrant pain at 0730 this morning. She relates this pain is 10/10. It is unrelenting at this time. It is continuous. She has required Dilaudid for pain control. She has an ultrasound which shows an ovarian cyst, which is roughly 6-7 cm in size, and there is blood flow to it. It has been highly compromised. There is also fluid in the pelvis surrounding it. She has a history of being seen on September 06, at which time she was noted to have a similar ovarian cyst. At that time, there was evidence of good blood flow to it. She has previously had a hysterectomy with left salpingo-oophorectomy for recurrent ovarian cysts. She has done well up until present. Her hysterectomy was performed in 2011. PAST MEDICAL HISTORY 1. Positive for asthma. 2. Migraines. 3. Ovarian cysts. 4. She also has eczema. SURGICAL HISTORY 1. Laparoscopic cholecystectomy. 2. Endometrial ablation. 3. Hysterectomy with left salpingo-oophorectomy in 2011. 4. She has also had tonsils and adenoidectomy. 5. Deviated septum repair. 6. LASIK surgery. ALLERGIES: CINNAMON. CURRENT MEDICATIONS 1. Albuterol. 2. Fexofenadine. 3. Salmeterol. 4. Mucomyst. 5. Cholecalciferol. 6. Loratadine. HABITS: Patient denies use of alcohol, tobacco, street or addictive drugs. SOCIAL HISTORY: Patient to [employer]. She lives with her spouse and children. She works for the [employer]. REVIEW OF SYSTEMS: Negative with the exception of asthma. PHYSICAL EXAMINATION VITAL SIGNS: Temperature is 96.7, heart rate is 92, respirations 16, blood pressure 144/82, saturation is 100%. HEENT: Pupils are equal and round. Extraocular muscles are intact. Thyroid is not palpably enlarged. Mouth is clear. HEART: Regular rate and rhythm without murmurs. LUNGS: Lung mendiola are clear without rales or wheezes. BACK: Exam shows some right lower quadrant tenderness. ABDOMEN: Exam shows scars from her previous laparoscopic surgery. The entire abdomen is nontender with the exception of the right lower quadrant. There is a possible mass in this area. PELVIC: Pelvic examination was not performed as she has had an ultrasound which is definitive for ovarian cyst with probable torsion. IMPRESSION: A 33-year-old G3, P3 female with probable torsed right ovary. The possibility of this being saved is marginal at this time. We will perform laparoscopy with possible laparotomy with possible cystectomy versus oophorectomy. Risks and benefits have been explained to patient, including those but not limited to bleeding, infection, injury to the pelvic organs, which include the bowel, bladder, ureters. She is aware of the potential for deep venous thrombosis with pulmonary embolism as well as postoperative adhesions, which can cause pain and bowel obstruction. She is also aware that if we remove the ovary, she will need to be on hormone replacement therapy. TD: 09/18/2018 17:35 MTDGage
[2018-09-19] MEDS: HYDROcod/ACETAM 5/325 MG TABLET PO PRN ×2 (02:59→07:04)
--- NOTE | 2018-09-19 06:24 | OPERATIVE REPORT ---
DATE OF SERVICE: 09/18/2018 Physician: Rodrigo Mazariegos MD PREOPERATIVE DIAGNOSIS: Torsed right ovary. POSTOPERATIVE DIAGNOSIS: Torsed right ovary. PROCEDURE PERFORMED: Diagnostic laparoscopy with right salpingo-oophorectomy and lysis of adhesions. SURGEON: Rodrigo Mazariegos MD ANESTHESIA: General via endotracheal tube. REHAB AID: Mary Andrade CRNA. FINDINGS: Upon entering the abdominal cavity, there was evidence of a very large dark, mottled, necrotic right ovary, which was torsed three times on its pedicle. The ovarian vessels appeared to be thrombosed. There was evidence of 70 mL of straw-colored fluid in one cyst and then 12 mL of bloody fluid in the other cyst. There was evidence of the bowel adhered to the vaginal cuff from a previous hysterectomy. DESCRIPTION OF PROCEDURE: Following adequate endotracheal anesthesia, the patient was placed in the supine position. At this point, she was prepped and draped in the usual fashion. A Rivera catheter had been placed under sterile conditions. Timeout was performed at which time was the issues of concerns were addressed. A stab wound was made in the subumbilical area following local anesthesia with 0.25% Marcaine with epinephrine. The trocar was placed in a single pass and the abdominal cavity was insufflated with carbon dioxide. At this point, there was evidence of a large torsed ovary coming from the right side. Two additional trocars were placed, both in the left and right lower quadrants following local anesthesia 0.25% Marcaine and then a skin incision with a #15 blade. Both ports were placed under direct visualization. At this point, the ovary was visualized and appeared to be necrotic in color. It was black and blue. The ovary was tightly twisted on its pedicle three times. There was no evidence of any blood flow occurring at this time. The appendix appeared to be normal. There was an area of adhesion of the bowel to the left side of the pelvis where the vaginal cuff was. At this point, the ovary was untwisted and it was decided at this point because of its necrotic state that it had to be removed. A LigaSure was then used to cauterize and transect the pedicle. Care was taken to do this three times and then care was taken to ensure there was no bleeding from the pedicle site itself. The ovary was then carefully inspected and then an intraoperative laparoscopic needle was used to drain 70 mL of straw-colored fluid from one of the cysts and then 12 mL of bloody fluid from the other cyst. The ovary was then collapsed and placed in an EndoCatch. This was brought up in pieces through the right lower incision following extension and placement of a 12 mm trocar. The ovary was removed in toto. The area was inspected where the pedicle was from the ovarian vessels. This showed evidence of good hemostasis. The bowel was adhered to the cuff and there was defect surrounding this, and so the concerns about internal herniation and strangulation was felt to be important; but because this was the bowel, I decided to do the dissection utilizing scissors without electro cautery . This was done both bluntly and sharply. There was no evidence of any bleeding from these sites. The bowel was free at this time with no evidence of any internal adhesions. At this point, the pelvis was irrigated with copious amounts of sterile saline. There was no evidence of bleeding. The right lower incision was closed utilizing a suture of 0 Vicryl utilizing the Alec-Maurice. This showed evidence of a good closure. The left lower quadrant trocar was removed under direct visualization. The CO2 was allowed to escape from the abdominal cavity and the subumbilical port was then removed. All three incisions were closed using 4-0 Monocryl subcuticular and then Dermabond was used to close these. The patient tolerated the procedure well and was taken to recovery in stable condition. Sponge and needle counts were correct. TD: 09/18/2018 20:59 GILA
[2018-09-19 07:57] VITALS: BP 111/67
[2018-09-19] MEDS ORDERED: KETOROLAC 30 MG/ML VIAL IVP PRN (08:48)
[2018-09-19] MEDS ORDERED: SODIUM CHLORIDE FLUSH 0.9% 10 ML SYRINGE ONE (08:57)
[2018-09-19] MEDS ORDERED: oxyCODONE/ACET 5/325 Prepack 4 PO STA (08:59)
== END 2018-09-19 09:15 | disposition home or self-care (01) ==
LOC: ED 12:41 → SDS 17:28 → OBS 21:06 → SDS 09-19 09:15
PROVIDERS: ATTEND Obstetrics & Gynecology
PROC: 0UT54ZZ Resection of Right Fallopian Tube, Percutaneous Endoscopic Approach (ICD-10-PCS; 2018-09-18)
PROC: 0UT04ZZ Resection of Right Ovary, Percutaneous Endoscopic Approach (ICD-10-PCS; principal; 2018-09-18 06:30)
DX: N83.511 Torsion of right ovary and ovarian pedicle (principal); K66.0 Peritoneal adhesions (postprocedural) (postinfection); J45.909 Unspecified asthma, uncomplicated; Z90.79 Acquired absence of other genital organ(s); Z79.51 Long term (current) use of inhaled steroids
CPT/HCPCS: 36415; 58661; 76830; 76856; 80048; 81003; 81025; 85025; 86850; 86900; 86901; 93975; 96374; 96376; 99283; 99284; A9270; J0690; J1170; J1200; J2060; J7120; 81001; 87086

== ENCOUNTER 2019-12-29 16:58 | Outpatient (CLI) | payer OTHER ==
[2019-12-29] MEDS ORDERED: GADOBUTROL 7.5 MMOL/7.5 ML VIAL ONE (18:12)
[2019-12-29] MEDS ORDERED: GADOBUTROL 7.5 MMOL/7.5 ML VIAL IVP ONE (19:35)
--- NOTE | 2019-12-30 00:42 | MRI Report ---
Reason: DIZZINESS, FAM HX OF STROKE, MIGRAINE Procedure Date: 12/29/2019 Accession Number: [id number] / [id number] Procedure: MRI - Angio Brain W/O (MRA) CPT Code: Final Report FULL RESULT: EXAM MRA BRAIN EXAM DATE: 12/29/2019 07:44 PM. CLINICAL HISTORY: Dizziness, family history of stroke, migraine. COMPARISON: None. TECHNIQUE: Multiplanar, multisequence MRA sequences of the brain were performed. Other: None. Post-processing: Multiplanar 3D MIP reconstructions. IV Contrast: None. FINDINGS: The internal carotid arteries of patent from the superior cervical to the supraclinoid portions. The bilateral A1, A2, M1, and M2 segments are patent. A normal caliber anterior communicating artery is present. The right ANDREW is dominant. In the posterior circulation, the bilateral V4 segments are patent. The PICAs appear patent. The basilar artery is widely patent throughout its course to the terminus. Normal flow voids are seen in the superior cerebellar and posterior cerebral arteries. Bilateral posterior communicating arteries are present, larger on the right. IMPRESSION: Normal brain MRA. No stenoses or aneurysms. RADIA
--- NOTE | 2019-12-30 00:42 | MRI Report ---
Reason: DIZZINESS, FAM HX OF STROKE, MIGRAINE Procedure Date: 12/29/2019 Accession Number: [id number] / [id number] Procedure: MRI - Angio Neck W/WO (MRA) CPT Code: Final Report FULL RESULT: EXAM: MR ANGIOGRAM NECK WITH AND WITHOUT CONTRAST EXAM DATE: 12/29/2019 07:00 PM. CLINICAL HISTORY: DIZZINESS, FAM HX OF STROKE, MIGRAINE. COMPARISON: None. TECHNIQUE: Multiplanar, multisequence MRA sequences of the neck were performed. Other: An axial T1 fat-saturated sequence of the neck was also obtained. Post-processing: Multiplanar 3D MIP reconstructions. IV Contrast: With and without, 7 mL of Gadavist. Evaluation of arterial stenosis is based on a NASCET method of measurement. FINDINGS: No abnormal hyperintensity seen on the axial T1 fat saturated sequences suggest acute dissection or intramural hematoma. In the anterior circulation, the origins of the common carotid arteries are patent. Normal flow voids are seen in the bilateral common, internal, and external carotid arteries without hemodynamically significant stenosis. In the posterior circulation, the origins of the vertebral arteries are patent. The left vertebral artery is slightly dominant. Normal flow voids are seen in their cervical courses without hemodynamically significant stenosis. IMPRESSION: Normal neck MRA. No hemodynamically significant stenoses. RADIA
== END 2019-12-29 16:59 | disposition home or self-care (01) ==
LOC: DI 16:58
PROVIDERS: ATTEND Family Medicine
DX: R42 Dizziness and giddiness (principal); G47.9 Sleep disorder, unspecified; G43.909 Migraine, unspecified, not intractable, without status migrainosus; Z82.3 Family history of stroke
CPT/HCPCS: 70544; 70549; A9585

== ENCOUNTER 2020-03-13 16:49 | Outpatient (CLI) | payer OTHER ==
--- NOTE | 2020-03-14 15:22 | MRI Report ---
PROCEDURE: Knee RT W/O INDICATIONS: PAIN IN RT KNEE, OTHER INSTABILITY TECHNIQUE: Noncontrast sagittal PD fast spin echo and T2 fast spin echo with fat saturation, sagittal 3-D gradie nt sequence with fat saturation; coronal T1 spin echo and PD fast spin echo with fat saturation, and axial PD fast spin echo with fat saturation through the knee. COMPARISON: None. FINDINGS: Image quality: Excellent. Menisci: The medial and lateral menisci demonstrate normal morphology and internal signal. The meni scal root ligaments appear intact. Cruciate ligaments: The anterior and posterior cruciate ligaments appear intact. Medial structures: The medial collateral ligament appears intact. Visualized portions of the pes ans erinus tendons appear normal. No abnormal bursal fluid. Lateral structures: The lateral collateral ligament, long and short heads of the biceps femoris tend on appear intact. The popliteus tendon appears normal. Iliotibial band appears normal. Anterior structures: The quadriceps and patellar tendons appear intact. Patellar alignment is juan l. No femoral trochlear dysplasia or ventral trochlear prominence. No edema in the infrapatellar fa t pad. Bones and cartilage: No bone marrow contusions or fractures. Mild subchondral degenerative marrow e ibeth within the patellar apex. Mild articular cartilage fibrillation overlies the lateral patellar ap ex. Mild articular cartilage loss diffusely overlies the weightbearing aspects of the medial femoral condyle and medial tibial plateau. Joint space: There is physiologic knee joint fluid. Trace Ambrosio?s cyst. Normal appearing synovial p licae are incidentally noted. IMPRESSION: 1. No internal derangement. 2. Mild medial and patellofemoral compartment articular cartilage loss. 3. Trace Ambrosio's cyst. Reviewed by: Shona Valencia MD on 03/14/2020 3:21 PM PDT Approved by: Shona Valencia MD on 03/14/2020 3:21 PM PDT Station ID: [id number]
== END 2020-03-13 16:50 | disposition home or self-care (01) ==
LOC: DI 16:49
PROVIDERS: ATTEND Family Medicine
DX: M22.41 Chondromalacia patellae, right knee (principal); M71.21 Synovial cyst of popliteal space [Baker], right knee

== ENCOUNTER 2022-01-15 18:39 | Outpatient (CLI) | payer OTHER | END 2022-01-15 18:40 | disposition short-term general hospital (02) | LOC: EMS 18:39 | DX: S39.93XA Unspecified injury of pelvis, initial encounter (principal); M79.604 Pain in right leg; V29.50XA Motorcycle passenger injured in collision with unspecified motor vehicles in traffic accident, initial encounter; Y92.414 Local residential or business street as the place of occurrence of the external cause | CPT/HCPCS: A0425; A0427 ==

== ENCOUNTER 2022-04-26 09:43 | Emergency (ER) | payer OTHER ==
[2022-04-26 09:53] VITALS: BP 143/95
--- OUTSIDE RECORDS SUMMARY | 2022-04-26 10:00 | EXTERNAL MEDICAL SUMMARY RPT | Continuity of Care Document ---
:1985 Author Organization [facility] Address [address] [place] [address] Phone Allergies No information. Encounters No information. Functional Status No information. Immunizations No information. Medications No information. Problems No information. Procedures No information. Results/Labs test date author facility value unit interpret ation Result panel 1 (unknown) (no (unknown) (unknown) (no value) (units (unk nown) date) unknown) (unknown) (no (unknown) (unknown) (no value) (units (unk nown) date) unknown) (unknown) (no (unknown) (unknown) [id number] (units (unkn own) date) Street unknown) (unknown) (no (unknown) (unknown) [place], [place] (units ( unknown) date) [id number] unknown) (unknown) (no (unknown) (unknown) [facility] (units (unknown) date) unknown) (unknown) (no (unknown) (unknown) Magnetic (units (unkno wn) date) Resonance Report unknown) (unknown) (no (unknown) (unknown) Signed (units (unkno wn) date) unknown) (unknown) (no (unknown) (unknown) (no value) (units (unk nown) date) unknown) (unknown) (no (unknown) (unknown) 04/05/22 (units (unkno wn) date) unknown) (unknown) (no (unknown) (unknown) 1. Healing (units (unk nown) date) nondisplaced unknown) fracture through mid to distal fibular shaft with (unknown) (no (unknown) (unknown) 12:58. (units (unkno wn) date) unknown) (unknown) (no (unknown) (unknown) 2. No muscle or (units (unknown) date) tendon signal unknown) abnormality is seen in right lower leg. (unknown) (no (unknown) (unknown) Approved by: (units (u nknown) date) Obie Rodriguez M.D. unknown) on 04/05/2022 at 17:26 (unknown) (no (unknown) (unknown) Bones: There (units ( unknown) date) is marrow edema unknown) and periosteal reaction involving mid fibular (unknown) (no (unknown) (unknown) COMPARISON: (units (un known) date) [facility] unknown) [facility], CR, XR TIBIA FIBULA RIGHT, (unknown) (no (unknown) (unknown) Dictated by: (units (u nknown) date) Obie Rodriguez M.D. unknown) on 04/05/2022 at 17:24 (unknown) (no (unknown) (unknown) FINDINGS: (units (unkn own) date) unknown) (unknown) (no (unknown) (unknown) IMPRESSION: (units (un known) date) unknown) (unknown) (no (unknown) (unknown) INDICATIONS: (units (u nknown) date) Pain in right unknown) lower leg (unknown) (no (unknown) (unknown) Image quality: (units (unknown) date) Excellent. unknown) (unknown) (no (unknown) (unknown) No edema or (units (un known) date) cortical unknown) disruption involving tibial shaft is seen. No periosteal (unknown) (no (unknown) (unknown) No other area (units ( unknown) date) of abnormal unknown) marrow signal. The overlying cortex appears intact. (unknown) (no (unknown) (unknown) Noncontrast (units (un known) date) coronal and unknown) sagittal T1 spin echo and STIR; axial T1 spin echo and (unknown) (no (unknown) (unknown) Soft tissues: (units ( unknown) date) The scanned unknown) muscles demonstrate normal overall bulk and internal (unknown) (no (unknown) (unknown) Subcutaneous (units (u nknown) date) tissues appear unknown) normal as well. No soft tissue masses are present. (unknown) (no (unknown) (unknown) TECHNIQUE: (units (unk nown) date) unknown) (unknown) (no (unknown) (unknown) and adjacent (units (u nknown) date) periosteal unknown) reaction. No marrow signal abnormality, cortical (unknown) (no (unknown) (unknown) consistent with (units (unknown) date) prior radiograph unknown) finding of healing nondisplaced fracture in (unknown) (no (unknown) (unknown) fractures lines (units (unknown) date) or intra-osseous unknown) lesions. (unknown) (no (unknown) (unknown) periosteal (units (unk nown) date) reaction is seen unknown) in tibial shaft. (unknown) (no (unknown) (unknown) spin echo with (units (unknown) date) fat saturation unknown) through the right lower leg. (unknown) (no (unknown) (unknown) 03/23/2022, (units (unk nown) date) unknown) (unknown) (no (unknown) (unknown) : [id number] (units (u nknown) date) unknown) (unknown) (no (unknown) (unknown) Accession (units (unkn own) date) Number: unknown) [id number] (unknown) (no (unknown) (unknown) Age/Sex: 37 / F (units (unknown) date) Date of unknown) Service: (unknown) (no (unknown) (unknown) : 1985 (units (unknown) date) unknown) Acct:[id number] (unknown) (no (unknown) (unknown) Loc: MRI (units (unkno wn) date) unknown) (unknown) (no (unknown) (unknown) No (units (unkno wn) date) unknown) (unknown) (no (unknown) (unknown) Ordering (units (unkno wn) date) Provider: unknown) Shaniqua Pace D.O. (unknown) (no (unknown) (unknown) PROCEDURE: MR (units (unknown) date) LOWER LEG RT WO unknown) CON (unknown) (no (unknown) (unknown) Patient: (units (unkno wn) date) Nataly Nam unknown) y M MR# (unknown) (no (unknown) (unknown) Procedure: MR (units ( unknown) date) lower leg RT wo unknown) con (unknown) (no (unknown) (unknown) T2 fast (units (unkno wn) date) unknown) (unknown) (no (unknown) (unknown) disruption or (units ( unknown) date) unknown) (unknown) (no (unknown) (unknown) marrow edema (units (u nknown) date) unknown) (unknown) (no (unknown) (unknown) reaction. (units (unkn own) date) unknown) (unknown) (no (unknown) (unknown) shaft (units (unkno wn) date) unknown) (unknown) (no (unknown) (unknown) signal. (units (unkno wn) date) unknown) (unknown) (no (unknown) (unknown) this area. (units (unk nown) date) unknown) Result panel 2 (unknown) (no (unknown) (unknown) (no value) (units (unk nown) date) unknown) (unknown) (no (unknown) (unknown) [address] [place] [address] (units (unknown) date) unknown) (unknown) (no (unknown) (unknown) [place] [address] (unit s (unknown) date) unknown) (unknown) (no (unknown) (unknown) [facility] (units (unknown) date) unknown) (unknown) (no (unknown) (unknown) Magnetic Resonance (units (unknown) date) Report unknown) (unknown) (no (unknown) (unknown) Signed (units (unkno wn) date) unknown) (unknown) (no (unknown) (unknown) (no value) (units (unk nown) date) unknown) (unknown) (no (unknown) (unknown) 04/05/22 (units (unkno wn) date) unknown) (unknown) (no (unknown) (unknown) 1. Well-defined (units (unknown) date) plantar calcaneal unknown) enthesophyte with thickened medial band of (unknown) (no (unknown) (unknown) 2. No marrow edema. (unit s (unknown) date) No fracture or unknown) dislocation. No significant joint (unknown) (no (unknown) (unknown) 3. Tendinosis and (units (unknown) date) low-grade unknown) tenosynovitis involving posterior tibialis tendon (unknown) (no (unknown) (unknown) 4. Sprain/low-grade (unit s (unknown) date) partial-thickness unknown) tear involving deltoid ligament. Rest of (unknown) (no (unknown) (unknown) Anterior (units (unkno wn) date) structures: The unknown) tibialis anterior, extensor hallucis longus, and (unknown) (no (unknown) (unknown) Approved by: Obie (units (unknown) date) Remedios Rodriguez on unknown) 04/05/2022 at 17:23 (unknown) (no (unknown) (unknown) Bones and joints: (units (unknown) date) No bone marrow unknown) contusions or fractures. No hindfoot (unknown) (no (unknown) (unknown) COMPARISON: [facility] (unit s (unknown) date) [facility], MR, MR unknown) ANKLE RT WO CON, 08/08/2021, 10:06. (unknown) (no (unknown) (unknown) Dictated by: Obie (units (unknown) date) Remedios Rodriguez on unknown) 04/05/2022 at 17:21 (unknown) (no (unknown) (unknown) FINDINGS: (units (unkn own) date) unknown) (unknown) (no (unknown) (unknown) IMPRESSION: (units (un known) date) unknown) (unknown) (no (unknown) (unknown) INDICATIONS: Pain (units (unknown) date) in right lower leg unknown) (unknown) (no (unknown) (unknown) Image quality: (units (unknown) date) Excellent. unknown) (unknown) (no (unknown) (unknown) Lateral structures: (unit s (unknown) date) The anterior unknown) talofibular, calcaneofibular, and posterior (unknown) (no (unknown) (unknown) Medial structures: (units (unknown) date) The posterior unknown) tibialis tendon is thickened at the level of (unknown) (no (unknown) (unknown) No abductor digiti (units (unknown) date) quinti muscle unknown) atrophy to suggest [place] neuropathy. (unknown) (no (unknown) (unknown) Noncontrast (units (un known) date) sagittal T1 spin unknown) echo and T2 fast spin echo with fat saturation, (unknown) (no (unknown) (unknown) Posterior and (units ( unknown) date) plantar structures: unknown) Achilles tendon is intact. Mildly thickened (unknown) (no (unknown) (unknown) TECHNIQUE: (units (unk nown) date) unknown) (unknown) (no (unknown) (unknown) and T2 fast spin (units (unknown) date) echo with fat unknown) saturation through the ankle/hindfoot. (unknown) (no (unknown) (unknown) band of plantar (units (unknown) date) fascia at its unknown) calcaneal insertion is seen with mild surrounding (unknown) (no (unknown) (unknown) bifurcate ligament (units (unknown) date) appear intact. The unknown) dorsal calcaneocuboid ligament appears (unknown) (no (unknown) (unknown) calcaneus/calcaneoc (unit s (unknown) date) uboid joint with unknown) small amount of fluid distending tendon (unknown) (no (unknown) (unknown) density fast spin (units (unknown) date) echo and T2 fast unknown) spin echo with fat saturation, coronal T1 (unknown) (no (unknown) (unknown) digitorum longus (units (unknown) date) tendons appear unknown) intact. The dorsal talonavicular ligament (unknown) (no (unknown) (unknown) edema, fibrosis, or (unit s (unknown) date) cyst formation. unknown) Visualized sinus tarsi components (unknown) (no (unknown) (unknown) fascia at its (units ( unknown) date) calcaneal insertion unknown) suggestive of low-grade plantar fasciitis. (unknown) (no (unknown) (unknown) flexor digitorum (units (unknown) date) longus, and flexor unknown) hallucis longus tendons are intact. The (unknown) (no (unknown) (unknown) intact. (units (unkno wn) date) unknown) (unknown) (no (unknown) (unknown) is normal in width (units (unknown) date) at 2 mm or less. unknown) The peroneus longus and brevis tendons (unknown) (no (unknown) (unknown) level of distal (units (unknown) date) talus/talonavicular unknown) joint. Rest of the ankle tendons are (unknown) (no (unknown) (unknown) ligament, (units (unkn own) date) interosseous unknown) talocalcaneal ligament, roots of the inferior extensor (unknown) (no (unknown) (unknown) ligaments appear (units (unknown) date) intact, as is the unknown) intermalleolar ligament. The tibiofibular (unknown) (no (unknown) (unknown) ligaments appear (units (unknown) date) intact. More unknown) superiorly, the anterior and posterior (unknown) (no (unknown) (unknown) ligaments are (units ( unknown) date) intact. unknown) (unknown) (no (unknown) (unknown) mass effect. (units (u nknown) date) Thickened deep and unknown) superficial fibers of deltoid ligament is (unknown) (no (unknown) (unknown) normal location and (unit s (unknown) date) morphology. unknown) Adjacent bony peroneal tubercle and (unknown) (no (unknown) (unknown) osteochondral (units ( unknown) date) injuries of the unknown) talar dome. Prominent plantar calcaneal (unknown) (no (unknown) (unknown) osteochondral (units ( unknown) date) injury of talar unknown) dome. (unknown) (no (unknown) (unknown) prominence are (units (unknown) date) normal in size. The unknown) sinus tarsi demonstrates normal fatty (unknown) (no (unknown) (unknown) retinaculum) appear (unit s (unknown) date) normal. The unknown) calcaneonavicular and calcaneocuboid (unknown) (no (unknown) (unknown) seen. No (units (unkn own) date) pathologic joint unknown) effusions. (unknown) (no (unknown) (unknown) spring ligament (units (unknown) date) complex is intact. unknown) (unknown) (no (unknown) (unknown) tibial (units (unkno wn) date) neurovascular bundle unknown) appears normal within the tarsal tunnel, without (unknown) (no (unknown) (unknown) (cervical (units (unkn own) date) unknown) (unknown) (no (unknown) (unknown) : [id number] (units (u nknown) date) unknown) (unknown) (no (unknown) (unknown) Accession Number: (units (unknown) date) [id number] unknown) (unknown) (no (unknown) (unknown) Age/Sex: 37 / F (units (unknown) date) Date of Service: unknown) (unknown) (no (unknown) (unknown) : 1985 (units (unknown) date) Acct:[id number] unknown) (unknown) (no (unknown) (unknown) Loc: MRI (units (unkno wn) date) unknown) (unknown) (no (unknown) (unknown) Ordering Provider: (units (unknown) date) Shaniqua Pace D.O. unknown) (unknown) (no (unknown) (unknown) PROCEDURE: MR (units (unknown) date) ANKLE RT WO CON unknown) (unknown) (no (unknown) (unknown) Patient: (units (unkno wn) date) Olga Nam M unknown) MR# (unknown) (no (unknown) (unknown) Procedure: MR ankle (unit s (unknown) date) RT wo con unknown) (unknown) (no (unknown) (unknown) appears (units (unkno wn) date) unknown) (unknown) (no (unknown) (unknown) at the (units (unkno wn) date) unknown) (unknown) (no (unknown) (unknown) axial proton (units (u nknown) date) unknown) (unknown) (no (unknown) (unknown) coalitions. No (units (unknown) date) unknown) (unknown) (no (unknown) (unknown) components of the (units (unknown) date) unknown) (unknown) (no (unknown) (unknown) demonstrate (units (un known) date) unknown) (unknown) (no (unknown) (unknown) distal (units (unkno wn) date) unknown) (unknown) (no (unknown) (unknown) edema. (units (unkno wn) date) unknown) (unknown) (no (unknown) (unknown) effusion. No (units ( unknown) date) unknown) (unknown) (no (unknown) (unknown) enthesophyte is (units (unknown) date) unknown) (unknown) (no (unknown) (unknown) extensor (units (unkno wn) date) unknown) (unknown) (no (unknown) (unknown) extrinsic (units (unkn own) date) unknown) (unknown) (no (unknown) (unknown) intact. (units (unkno wn) date) unknown) (unknown) (no (unknown) (unknown) intact. (units (unkno wn) date) unknown) (unknown) (no (unknown) (unknown) medial (units (unkno wn) date) unknown) (unknown) (no (unknown) (unknown) plantar (units (unkno wn) date) unknown) (unknown) (no (unknown) (unknown) posterior (units (unkn own) date) unknown) (unknown) (no (unknown) (unknown) retrotrochlear (units (unknown) date) unknown) (unknown) (no (unknown) (unknown) seen. The (units (unk nown) date) unknown) (unknown) (no (unknown) (unknown) sheath. The (units (u nknown) date) unknown) (unknown) (no (unknown) (unknown) signal, without (units (unknown) date) unknown) (unknown) (no (unknown) (unknown) spin echo (units (unkn own) date) unknown) (unknown) (no (unknown) (unknown) syndesmosis (units (un known) date) unknown) (unknown) (no (unknown) (unknown) talofibular (units (un known) date) unknown) (unknown) (no (unknown) (unknown) the ankle (units (unkn own) date) unknown) (unknown) (no (unknown) (unknown) tibiofibular (units (u nknown) date) unknown) Social History No information. Vital Signs No information.
[2022-04-26] MEDS ORDERED: LIDOCAINE PATCH 5% TOP STA (10:17)
[2022-04-26] MEDS ORDERED: KETOROLAC 30 MG/ML VIAL IM STA (10:17)
--- NOTE | 2022-04-26 10:27 | XRAY Report ---
PROCEDURE: Shoulder 2 View RT INDICATIONS: R SHOULDER PAIN S/P [facility] TECHNIQUE: 2 views of the shoulder were acquired. COMPARISON: None. FINDINGS: Bones: No fractures or dislocations. No suspicious bony lesions. Visualized ribs appear intact. Soft tissues: No suspicious soft tissue calcifications. The visualized lung demonstrates a normal a ppearance. IMPRESSION: No fracture or dislocation can be seen on these plain films. Please correlate with focal tenderness. If there is point tenderness (or other clinical concern for a fracture not seen on these plain films) then please consider a dedicated CT study or a short term fo llow up plain film series for further evaluation. Reviewed by: Franklin Michelle MD on 04/26/2022 10:26 AM PDT Approved by: Franklin Michelle MD on 04/26/2022 10:26 AM PDT Station ID: [id number]
--- NOTE | 2022-04-26 10:33 | ED Physician Documentation ---
History of Present Illness - Stated complaint Stated Complaint: R SHOULDER PAIN - Chief complaint Chief Complaint: Ext Problem - History obtained from History obtained from: Patient - History of Present Illness Timing: Yesterday - Additonal information Additional information: 37-year-old female presents for evaluation of atraumatic right shoulder pain since yesterday. Pain began gradually, is aching, does not radiate. Pain makes it difficult to move the arm. No known injuries. Motrin taken at home for symptoms without significant relief. Denies numbness, weakness, tingling. Pain is in the posterior aspect of her right shoulder. Review of Systems Ten Systems: 10 systems reviewed and negative Constitutional: denies: Fever, Chills, Myalgias Eyes: denies: Loss of vision, Decreased vision, Photophobia Ears: denies: Loss of hearing, Ear pain, Drainage/discharge Nose: denies: Rhinorrhea / runny nose, Foreign Body Throat: denies: Dental pain / toothache, Oral lesions / sores, Sore throat Cardiac: denies: Chest pain / pressure, Palpitations, Pedal edema Respiratory: denies: Dyspnea, Cough, Hemoptysis GI: denies: Abdominal Pain, Abdominal Swelling, Nausea, Vomiting, Constipation, Diarrhea : denies: Dysuria, Frequency, Hesitancy Musculoskeletal: reports: Joint pain. 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 cysts : None Musculoskeletal: None Derm: None - Past Surgical History Past Surgical History: Yes General: Cholecystectomy /FIELD REVIEWER: Endometrial ablation, Hysterectomy, Oophrectomy HEENT: Tonsil/Adenoidectomy - Present Medications Home Medications: Ambulatory Orders Medication Instructions Recorded Confirmed Fexofenadine [Corine] 180 mg PO DAILY 02/03/15 09/18/18 Montelukast [Singulair] 10 mg PO QPM 08/06/16 09/18/18 Cholecalciferol (Vitamin D3) 1 cap PO DAILY 09/18/18 09/18/18 [Vitamin D3] Loratadine [Claritin] 10 mg PO DAILY 09/18/18 09/18/18 - Allergies Allergies/Adverse Reactions: Allergies Allergy/AdvReac Type Severity Reaction Status Date / Time cinnamon Allergy Unknown Verified 08/01/22 09:53 - Social History Does the pt smoke?: No Smoking Status: Never smoker Does the pt drink ETOH?: Yes Does the pt have substance abuse?: No - Immunizations Immunizations are current?: Yes - POLST Patient has POLST: No PD ED PE NORMAL - Vitals Vital signs reviewed: Yes - General General: Alert and oriented X 3, No acute distress, Well developed/nourished - HEENT HEENT: Atraumatic, PERRL, EOMI, Ears normal, Moist mucous membranes - Neck Neck: Supple, no meningeal sign, No JVD, No bruit - Cardiac Cardiac: RRR, No murmur, Strong equal pulses - Respiratory Respiratory: No respiratory distress, Clear bilaterally - Abdomen Abdomen: Soft, Non tender, Non distended, No organomegaly - Back Back: No CVA TTP, No spinal TTP - Derm Derm: Normal color, Warm and dry, No rash - Extremities Extremities: No deformity, Normal ROM s pain, No edema - Neuro Neuro: Alert and oriented X 3, 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 Neurovascularly intact. X-rays negative for acute findings. Patient was given anti-inflammatory prescriptions as well as muscle relaxers. Gentle stretching exercises counseled. Departure - Departure Disposition: Home, Self Care Clinical Impression: Shoulder strain Qualifiers: Encounter type: initial encounter Laterality: right Qualified Code(s): S46.911A - Strain of unspecified muscle, fascia and tendon at shoulder and upper arm level, right arm, initial encounter Condition: Stable Instructions: Anatomy Shoulder, Shoulder Probs Comments: TAKE TYLENOL AND MOTRIN NEEDED FOR PAIN. YOU MAY ALSO APPLY ICE FOR COMFORT Discharge Date/Time: 04/26/22 10:51
== END 2022-04-26 10:51 | disposition home or self-care (01) ==
LOC: ED 09:43
DX: S46.911A Strain of unspecified muscle, fascia and tendon at shoulder and upper arm level, right arm, initial encounter (principal); X58.XXXA Exposure to other specified factors, initial encounter
CPT/HCPCS: 73030; 96372; 99282; 99283; A9270

== ENCOUNTER 2022-08-14 07:37 | Outpatient (CLI) | payer OTHER ==
--- NOTE | 2022-08-14 09:06 | MRI Report ---
PROCEDURE: MRI cervical spine without contrast INDICATIONS: CERVICAL RADICULOPATHY TECHNIQUE: Noncontrast sagittal T1 spin echo and T2 fast spin echo, sagittal STIR, foraminal oblique sagittal T2 fast spin echo, and axial gradient echo or T2 fast spin echo through the cervical spine. COMPARISON: None. FINDINGS: Image quality: Excellent. Alignment and Curvature: Straightening of the normal cervical lordosis. Craniovertebral relationships normal. Bone Marrow: Marrow demonstrates normal overall signal. Spinal Cord: Visualized spinal cord has normal size and signal. No cerebellar tonsillar herniation. Paraspinous Soft Tissues: No paravertebral masses. Prevertebral soft tissues are normal in thicknes s. C2-C3: Normal in appearance. C3-C4: Normal in appearance. C4-C5: Normal in appearance. C5-C6: Asymmetric left posterior disc osteophyte complex results in mild central stenosis. No forami nal stenosis. C6-C7: Normal in appearance. C7-T1: Normal in appearance. IMPRESSION: Mild degenerative change at C5-6 without significant central or foraminal stenosis Reviewed by: Lakhwinder Mijares MD on 08/14/2022 8:05 AM [place] Approved by: Lakhwinder Mijares MD on 08/14/2022 8:05 AM [facility] Station ID: [id number]
== END 2022-08-14 07:38 | disposition home or self-care (01) ==
LOC: DI 07:37
PROVIDERS: ATTEND Family Medicine
DX: M47.22 Other spondylosis with radiculopathy, cervical region (principal); M48.02 Spinal stenosis, cervical region; M25.511 Pain in right shoulder

== ENCOUNTER 2022-10-26 15:20 | Outpatient (CLI) | payer OTHER ==
--- NOTE | 2022-10-26 11:43 | XRAY Report ---
PROCEDURE: Shoulder 3 View RT INDICATIONS: RIGHT SHOULDER PAIN TECHNIQUE: 3 views of the shoulder were acquired. COMPARISON: X-ray shoulder 04/26/2022 FINDINGS: Bones: No fractures or dislocations. No suspicious bony lesions. Visualized ribs appear intact. Soft tissues: No suspicious soft tissue calcifications. IMPRESSION: Stable interval exam. No visualized acute fracture or dislocation. However, occult injur y cannot be excluded. Recommend short interval imaging follow-up in 7-10 days as clinically indicated for additional evaluation. Reviewed by: Temitope Bowen MD on 10/26/2022 11:42 AM PST Approved by: Temitope Bowen MD on 10/26/2022 11:42 AM [facility] Station ID: [id number]
== END 2022-10-26 15:24 | disposition home or self-care (01) ==
LOC: DI.WOS 15:20
PROVIDERS: ATTEND Orthopaedic Surgery
DX: M25.511 Pain in right shoulder (principal)

== ENCOUNTER 2023-01-23 06:52 | Emergency (ER) | payer OTHER ==
--- OUTSIDE RECORDS SUMMARY | 2023-01-23 07:00 | EXTERNAL MEDICAL SUMMARY RPT | Continuity of Care Document ---
:1985 Author Organization [facility] Address [address] [place] [address] Phone Care Team Providers Name Role Phone Ludin Paniagua, Walt Unavailable Unavailable Blaine ConcepcionRot Estrellita Unavailable Unavailable Blaine ConcepcionRot Estrellita Unavailable Unavailable [facility] Patient Registrar, Kristy Unavailable Unavailab le Allergies No information. Encounters No information. Functional Status No information. Immunizations No information. Medications date description facility 2022-10-26 00:00 conjugated estrogens All 2022-10-26 00:00 conjugated estrogens All 2022-10-26 00:00 conjugated estrogens All 2022-10-27 00:00 conjugated estrogens All 2022-10-29 00:00 conjugated estrogens All 2022-11-25 00:00 conjugated estrogens All 2022-10-26 00:00 fluticasone propionate All 2022-10-26 00:00 fluticasone propionate All 2022-10-26 00:00 fluticasone propionate All 2022-10-27 00:00 fluticasone propionate All 2022-10-29 00:00 fluticasone propionate All 2022-11-25 00:00 fluticasone propionate All 2022-10-26 00:00 eletriptan All 2022-10-26 00:00 eletriptan All 2022-10-26 00:00 eletriptan All 2022-10-27 00:00 eletriptan All 2022-10-29 00:00 eletriptan All 2022-11-25 00:00 eletriptan All 2022-10-26 00:00 nystatin All 2022-10-26 00:00 nystatin All 2022-10-26 00:00 nystatin All 2022-10-27 00:00 nystatin All 2022-10-29 00:00 nystatin All 2022-11-25 00:00 nystatin All 2022-10-26 00:00 lidocaine-prilocaine All 2022-10-26 00:00 lidocaine-prilocaine All 2022-10-26 00:00 lidocaine-prilocaine All 2022-10-27 00:00 lidocaine-prilocaine All 2022-10-29 00:00 lidocaine-prilocaine All 2022-11-25 00:00 lidocaine-prilocaine All 2022-10-26 00:00 fluticasone propion-salmeterol All 2022-10-26 00:00 fluticasone propion-salmeterol All 2022-10-26 00:00 fluticasone propion-salmeterol All 2022-10-27 00:00 fluticasone propion-salmeterol All 2022-10-29 00:00 fluticasone propion-salmeterol All 2022-11-25 00:00 fluticasone propion-salmeterol All 2022-10-26 00:00 fluticasone propion-salmeterol All 2022-10-26 00:00 fluticasone propion-salmeterol All 2022-10-26 00:00 fluticasone propion-salmeterol All 2022-10-27 00:00 fluticasone propion-salmeterol All 2022-10-29 00:00 fluticasone propion-salmeterol All 2022-11-25 00:00 fluticasone propion-salmeterol All 2022-10-26 00:00 diazepam All 2022-10-26 00:00 diazepam All 2022-10-26 00:00 diazepam All 2022-10-27 00:00 diazepam All 2022-10-29 00:00 diazepam All 2022-11-25 00:00 diazepam All 2022-10-26 00:00 hydromorphone All 2022-10-26 00:00 hydromorphone All 2022-10-26 00:00 hydromorphone All 2022-10-27 00:00 hydromorphone All 2022-10-29 00:00 hydromorphone All 2022-11-25 00:00 hydromorphone All 2022-10-26 00:00 promethazine All 2022-10-26 00:00 promethazine All 2022-10-26 00:00 promethazine All 2022-10-27 00:00 promethazine All 2022-10-29 00:00 promethazine All 2022-11-25 00:00 promethazine All 2022-10-26 00:00 fluticasone propionate All 2022-10-26 00:00 fluticasone propionate All 2022-10-26 00:00 fluticasone propionate All 2022-10-27 00:00 fluticasone propionate All 2022-10-29 00:00 fluticasone propionate All 2022-11-25 00:00 fluticasone propionate All 2022-10-26 00:00 cetirizine All 2022-10-26 00:00 cetirizine All 2022-10-26 00:00 cetirizine All 2022-10-27 00:00 cetirizine All 2022-10-29 00:00 cetirizine All 2022-11-25 00:00 cetirizine All 2022-10-26 00:00 hydromorphone All 2022-10-26 00:00 hydromorphone All 2022-10-26 00:00 hydromorphone All 2022-10-27 00:00 hydromorphone All 2022-10-29 00:00 hydromorphone All 2022-11-25 00:00 hydromorphone All 2022-10-26 00:00 ibuprofen All 2022-10-26 00:00 ibuprofen All 2022-10-26 00:00 ibuprofen All 2022-10-27 00:00 ibuprofen All 2022-10-29 00:00 ibuprofen All 2022-11-25 00:00 ibuprofen All 2022-10-26 00:00 olopatadine All 2022-10-26 00:00 olopatadine All 2022-10-26 00:00 olopatadine All 2022-10-27 00:00 olopatadine All 2022-10-29 00:00 olopatadine All 2022-11-25 00:00 olopatadine All 2022-10-26 00:00 fluconazole All 2022-10-26 00:00 fluconazole All 2022-10-26 00:00 fluconazole All 2022-10-27 00:00 fluconazole All 2022-10-29 00:00 fluconazole All 2022-11-25 00:00 fluconazole All 2022-10-26 00:00 methocarbamol All 2022-10-26 00:00 methocarbamol All 2022-10-26 00:00 methocarbamol All 2022-10-27 00:00 methocarbamol All 2022-10-29 00:00 methocarbamol All 2022-11-25 00:00 methocarbamol All 2022-10-26 00:00 conjugated estrogens All 2022-10-26 00:00 conjugated estrogens All 2022-10-26 00:00 conjugated estrogens All 2022-10-27 00:00 conjugated estrogens All 2022-10-29 00:00 conjugated estrogens All 2022-11-25 00:00 conjugated estrogens All 2022-10-26 00:00 meloxicam All 2022-10-26 00:00 meloxicam All 2022-10-26 00:00 meloxicam All 2022-10-27 00:00 meloxicam All 2022-10-29 00:00 meloxicam All 2022-11-25 00:00 meloxicam All 2022-10-26 00:00 nystatin All 2022-10-26 00:00 nystatin All 2022-10-26 00:00 nystatin All 2022-10-27 00:00 nystatin All 2022-10-29 00:00 nystatin All 2022-11-25 00:00 nystatin All 2022-10-26 00:00 conjugated estrogens All 2022-10-26 00:00 conjugated estrogens All 2022-10-26 00:00 conjugated estrogens All 2022-10-27 00:00 conjugated estrogens All 2022-10-29 00:00 conjugated estrogens All 2022-11-25 00:00 conjugated estrogens All 2022-10-26 00:00 promethazine All 2022-10-26 00:00 promethazine All 2022-10-26 00:00 promethazine All 2022-10-27 00:00 promethazine All 2022-10-29 00:00 promethazine All 2022-11-25 00:00 promethazine All 2022-10-26 00:00 fluticasone propionate All 2022-10-26 00:00 fluticasone propionate All 2022-10-26 00:00 fluticasone propionate All 2022-10-27 00:00 fluticasone propionate All 2022-10-29 00:00 fluticasone propionate All 2022-11-25 00:00 fluticasone propionate All 2022-10-26 00:00 diazepam All 2022-10-26 00:00 diazepam All 2022-10-26 00:00 diazepam All 2022-10-27 00:00 diazepam All 2022-10-29 00:00 diazepam All 2022-11-25 00:00 diazepam All 2022-10-26 00:00 fluconazole All 2022-10-26 00:00 fluconazole All 2022-10-26 00:00 fluconazole All 2022-10-27 00:00 fluconazole All 2022-10-29 00:00 fluconazole All 2022-11-25 00:00 fluconazole All 2022-10-26 00:00 ibuprofen All 2022-10-26 00:00 ibuprofen All 2022-10-26 00:00 ibuprofen All 2022-10-27 00:00 ibuprofen All 2022-10-29 00:00 ibuprofen All 2022-11-25 00:00 ibuprofen All 2022-10-26 00:00 lidocaine-prilocaine All 2022-10-26 00:00 lidocaine-prilocaine All 2022-10-26 00:00 lidocaine-prilocaine All 2022-10-27 00:00 lidocaine-prilocaine All 2022-10-29 00:00 lidocaine-prilocaine All 2022-11-25 00:00 lidocaine-prilocaine All 2022-10-26 00:00 methocarbamol All 2022-10-26 00:00 methocarbamol All 2022-10-26 00:00 methocarbamol All 2022-10-27 00:00 methocarbamol All 2022-10-29 00:00 methocarbamol All 2022-11-25 00:00 methocarbamol All 2022-10-26 00:00 triazolam All 2022-10-26 00:00 triazolam All 2022-10-26 00:00 triazolam All 2022-10-27 00:00 triazolam All 2022-10-29 00:00 triazolam All 2022-11-25 00:00 triazolam All 2022-10-26 00:00 montelukast All 2022-10-26 00:00 montelukast All 2022-10-26 00:00 montelukast All 2022-10-27 00:00 montelukast All 2022-10-29 00:00 montelukast All 2022-11-25 00:00 montelukast All 2022-10-26 00:00 fluticasone propion-salmeterol All 2022-10-26 00:00 fluticasone propion-salmeterol All 2022-10-26 00:00 fluticasone propion-salmeterol All 2022-10-27 00:00 fluticasone propion-salmeterol All 2022-10-29 00:00 fluticasone propion-salmeterol All 2022-11-25 00:00 fluticasone propion-salmeterol All 2022-10-26 00:00 fluticasone propion-salmeterol All 2022-10-26 00:00 fluticasone propion-salmeterol All 2022-10-26 00:00 fluticasone propion-salmeterol All 2022-10-27 00:00 fluticasone propion-salmeterol All 2022-10-29 00:00 fluticasone propion-salmeterol All 2022-11-25 00:00 fluticasone propion-salmeterol All 2022-10-26 00:00 triazolam All 2022-10-26 00:00 triazolam All 2022-10-26 00:00 triazolam All 2022-10-27 00:00 triazolam All 2022-10-29 00:00 triazolam All 2022-11-25 00:00 triazolam All 2022-10-26 00:00 otiwszzbcj-qslxrlmapmowo-flpl All 2022-10-26 00:00 kmmtfvzvuo-jsfohihspufob-aigi All 2022-10-26 00:00 iuqurpzoln-lxxhjzayapwwp-adul All 2022-10-27 00:00 hbuzfcqllq-tuneyyvvawiqm-abnc All 2022-10-29 00:00 gmhygvwwjk-xsbjxhesdzvjp-cegp All 2022-11-25 00:00 oiupkowmzb-psscqouxpyqko-acxm All 2022-10-26 00:00 conjugated estrogens All 2022-10-26 00:00 conjugated estrogens All 2022-10-26 00:00 conjugated estrogens All 2022-10-27 00:00 conjugated estrogens All 2022-10-29 00:00 conjugated estrogens All 2022-11-25 00:00 conjugated estrogens All 2022-10-26 00:00 cetirizine All 2022-10-26 00:00 cetirizine All 2022-10-26 00:00 cetirizine All 2022-10-27 00:00 cetirizine All 2022-10-29 00:00 cetirizine All 2022-11-25 00:00 cetirizine All 2022-10-26 00:00 clobetasol All 2022-10-26 00:00 clobetasol All 2022-10-26 00:00 clobetasol All 2022-10-27 00:00 clobetasol All 2022-10-29 00:00 clobetasol All 2022-11-25 00:00 clobetasol All 2022-10-26 00:00 lidocaine-prilocaine All 2022-10-26 00:00 lidocaine-prilocaine All 2022-10-26 00:00 lidocaine-prilocaine All 2022-10-27 00:00 lidocaine-prilocaine All 2022-10-29 00:00 lidocaine-prilocaine All 2022-11-25 00:00 lidocaine-prilocaine All 2022-10-26 00:00 loratadine All 2022-10-26 00:00 loratadine All 2022-10-26 00:00 loratadine All 2022-10-27 00:00 loratadine All 2022-10-29 00:00 loratadine All 2022-11-25 00:00 loratadine All 2022-10-26 00:00 loratadine All 2022-10-26 00:00 loratadine All 2022-10-26 00:00 loratadine All 2022-10-27 00:00 loratadine All 2022-10-29 00:00 loratadine All 2022-11-25 00:00 loratadine All 2022-10-26 00:00 methocarbamol All 2022-10-26 00:00 methocarbamol All 2022-10-26 00:00 methocarbamol All 2022-10-27 00:00 methocarbamol All 2022-10-29 00:00 methocarbamol All 2022-11-25 00:00 methocarbamol All 2022-10-26 00:00 zolpidem All 2022-10-26 00:00 zolpidem All 2022-10-26 00:00 zolpidem All 2022-10-27 00:00 zolpidem All 2022-10-29 00:00 zolpidem All 2022-11-25 00:00 zolpidem All 2022-10-26 00:00 eletriptan All 2022-10-26 00:00 eletriptan All 2022-10-26 00:00 eletriptan All 2022-10-27 00:00 eletriptan All 2022-10-29 00:00 eletriptan All 2022-11-25 00:00 eletriptan All 2022-10-26 00:00 fluconazole All 2022-10-26 00:00 fluconazole All 2022-10-26 00:00 fluconazole All 2022-10-27 00:00 fluconazole All 2022-10-29 00:00 fluconazole All 2022-11-25 00:00 fluconazole All 2022-10-26 00:00 promethazine All 2022-10-26 00:00 promethazine All 2022-10-26 00:00 promethazine All 2022-10-27 00:00 promethazine All 2022-10-29 00:00 promethazine All 2022-11-25 00:00 promethazine All 2022-10-26 00:00 cetirizine All 2022-10-26 00:00 cetirizine All 2022-10-26 00:00 cetirizine All 2022-10-27 00:00 cetirizine All 2022-10-29 00:00 cetirizine All 2022-11-25 00:00 cetirizine All 2022-10-26 00:00 loratadine All 2022-10-26 00:00 loratadine All 2022-10-26 00:00 loratadine All 2022-10-27 00:00 loratadine All 2022-10-29 00:00 loratadine All 2022-11-25 00:00 loratadine All 2022-10-26 00:00 fluticasone propionate All 2022-10-26 00:00 fluticasone propionate All 2022-10-26 00:00 fluticasone propionate All 2022-10-27 00:00 fluticasone propionate All 2022-10-29 00:00 fluticasone propionate All 2022-11-25 00:00 fluticasone propionate All 2022-10-26 00:00 fluticasone propion-salmeterol All 2022-10-26 00:00 fluticasone propion-salmeterol All 2022-10-26 00:00 fluticasone propion-salmeterol All 2022-10-27 00:00 fluticasone propion-salmeterol All 2022-10-29 00:00 fluticasone propion-salmeterol All 2022-11-25 00:00 fluticasone propion-salmeterol All 2022-10-26 00:00 fluticasone propion-salmeterol All 2022-10-26 00:00 fluticasone propion-salmeterol All 2022-10-26 00:00 fluticasone propion-salmeterol All 2022-10-27 00:00 fluticasone propion-salmeterol All 2022-10-29 00:00 fluticasone propion-salmeterol All 2022-11-25 00:00 fluticasone propion-salmeterol All 2022-10-26 00:00 montelukast All 2022-10-26 00:00 montelukast All 2022-10-26 00:00 montelukast All 2022-10-27 00:00 montelukast All 2022-10-29 00:00 montelukast All 2022-11-25 00:00 montelukast All 2022-10-26 00:00 knqdsgibcu-wbhadbepxrrbu-ohud All 2022-10-26 00:00 sblfujpvck-smowaxxwwmclb-pvwt All 2022-10-26 00:00 lsrtfojjfc-wymafhfbalfhl-zphx All 2022-10-27 00:00 jorplnqlca-vjohxtxcrzusl-jjlr All 2022-10-29 00:00 uqqleyumke-vcxdbkphzzmjg-txjw All 2022-11-25 00:00 mgfcpgetey-loccpzqgcfkxm-mwoh All 2022-10-26 00:00 olopatadine All 2022-10-26 00:00 olopatadine All 2022-10-26 00:00 olopatadine All 2022-10-27 00:00 olopatadine All 2022-10-29 00:00 olopatadine All 2022-11-25 00:00 olopatadine All 2022-10-26 00:00 pybrsxvefk-oggebaqzytzos-tgvn All 2022-10-26 00:00 zpzmkynolj-sgfwwrksxgqxf-clxe All 2022-10-26 00:00 xghivmagkj-elyqufvrainjc-aebr All 2022-10-27 00:00 mebjaxwqco-nfptrznqteioy-zaqh All 2022-10-29 00:00 htrfklvzvf-zrymuozmtwdna-xvyn All 2022-11-25 00:00 lfangatrij-zaztpjlilzvxn-xift All 2022-10-26 00:00 meloxicam All 2022-10-26 00:00 meloxicam All 2022-10-26 00:00 meloxicam All 2022-10-27 00:00 meloxicam All 2022-10-29 00:00 meloxicam All 2022-11-25 00:00 meloxicam All 2022-10-26 00:00 clobetasol All 2022-10-26 00:00 clobetasol All 2022-10-26 00:00 clobetasol All 2022-10-27 00:00 clobetasol All 2022-10-29 00:00 clobetasol All 2022-11-25 00:00 clobetasol All 2022-10-26 00:00 hydrocodone-acetaminophen All 2022-10-26 00:00 hydrocodone-acetaminophen All 2022-10-26 00:00 hydrocodone-acetaminophen All 2022-10-27 00:00 hydrocodone-acetaminophen All 2022-10-29 00:00 hydrocodone-acetaminophen All 2022-11-25 00:00 hydrocodone-acetaminophen All 2022-10-26 00:00 montelukast All 2022-10-26 00:00 montelukast All 2022-10-26 00:00 montelukast All 2022-10-27 00:00 montelukast All 2022-10-29 00:00 montelukast All 2022-11-25 00:00 montelukast All 2022-10-26 00:00 zolpidem All 2022-10-26 00:00 zolpidem All 2022-10-26 00:00 zolpidem All 2022-10-27 00:00 zolpidem All 2022-10-29 00:00 zolpidem All 2022-11-25 00:00 zolpidem All 2022-10-26 00:00 diazepam All 2022-10-26 00:00 diazepam All 2022-10-26 00:00 diazepam All 2022-10-27 00:00 diazepam All 2022-10-29 00:00 diazepam All 2022-11-25 00:00 diazepam All 2022-10-26 00:00 albuterol sulfate All 2022-10-26 00:00 albuterol sulfate All 2022-10-26 00:00 albuterol sulfate All 2022-10-27 00:00 albuterol sulfate All 2022-10-29 00:00 albuterol sulfate All 2022-11-25 00:00 albuterol sulfate All 2022-10-26 00:00 triazolam All 2022-10-26 00:00 triazolam All 2022-10-26 00:00 triazolam All 2022-10-27 00:00 triazolam All 2022-10-29 00:00 triazolam All 2022-11-25 00:00 triazolam All 2022-10-26 00:00 triazolam All 2022-10-26 00:00 triazolam All 2022-10-26 00:00 triazolam All 2022-10-27 00:00 triazolam All 2022-10-29 00:00 triazolam All 2022-11-25 00:00 triazolam All 2022-10-26 00:00 zolpidem All 2022-10-26 00:00 zolpidem All 2022-10-26 00:00 zolpidem All 2022-10-27 00:00 zolpidem All 2022-10-29 00:00 zolpidem All 2022-11-25 00:00 zolpidem All 2022-10-26 00:00 loratadine All 2022-10-26 00:00 loratadine All 2022-10-26 00:00 loratadine All 2022-10-27 00:00 loratadine All 2022-10-29 00:00 loratadine All 2022-11-25 00:00 loratadine All 2022-10-26 00:00 olopatadine All 2022-10-26 00:00 olopatadine All 2022-10-26 00:00 olopatadine All 2022-10-27 00:00 olopatadine All 2022-10-29 00:00 olopatadine All 2022-11-25 00:00 olopatadine All 2022-10-26 00:00 cetirizine All 2022-10-26 00:00 cetirizine All 2022-10-26 00:00 cetirizine All 2022-10-27 00:00 cetirizine All 2022-10-29 00:00 cetirizine All 2022-11-25 00:00 cetirizine All 2022-10-26 00:00 fluconazole All 2022-10-26 00:00 fluconazole All 2022-10-26 00:00 fluconazole All 2022-10-27 00:00 fluconazole All 2022-10-29 00:00 fluconazole All 2022-11-25 00:00 fluconazole All 2022-10-26 00:00 nkhlrlgovp-anlellgjywsgr-roly All 2022-10-26 00:00 pzuiovnesg-nkyyzdeiybunw-mfde All 2022-10-26 00:00 nmxihjedre-vlnrqxtsuqvit-vrnd All 2022-10-27 00:00 gqfrwzfhyp-climbfqomizsv-lpur All 2022-10-29 00:00 jrqxddwotb-zdffuwcmxvzle-mnxw All 2022-11-25 00:00 iqljhcdfls-gedphpfnflclg-ijfx All 2022-10-26 00:00 diazepam All 2022-10-26 00:00 diazepam All 2022-10-26 00:00 diazepam All 2022-10-27 00:00 diazepam All 2022-10-29 00:00 diazepam All 2022-11-25 00:00 diazepam All 2022-10-26 00:00 hydromorphone All 2022-10-26 00:00 hydromorphone All 2022-10-26 00:00 hydromorphone All 2022-10-27 00:00 hydromorphone All 2022-10-29 00:00 hydromorphone All 2022-11-25 00:00 hydromorphone All 2022-10-26 00:00 ibuprofen All 2022-10-26 00:00 ibuprofen All 2022-10-26 00:00 ibuprofen All 2022-10-27 00:00 ibuprofen All 2022-10-29 00:00 ibuprofen All 2022-11-25 00:00 ibuprofen All 2022-10-26 00:00 montelukast All 2022-10-26 00:00 montelukast All 2022-10-26 00:00 montelukast All 2022-10-27 00:00 montelukast All 2022-10-29 00:00 montelukast All 2022-11-25 00:00 montelukast All 2022-10-26 00:00 hydrocodone-acetaminophen All 2022-10-26 00:00 hydrocodone-acetaminophen All 2022-10-26 00:00 hydrocodone-acetaminophen All 2022-10-27 00:00 hydrocodone-acetaminophen All 2022-10-29 00:00 hydrocodone-acetaminophen All 2022-11-25 00:00 hydrocodone-acetaminophen All 2022-10-26 00:00 ibuprofen All 2022-10-26 00:00 ibuprofen All 2022-10-26 00:00 ibuprofen All 2022-10-27 00:00 ibuprofen All 2022-10-29 00:00 ibuprofen All 2022-11-25 00:00 ibuprofen All 2022-10-26 00:00 meloxicam All 2022-10-26 00:00 meloxicam All 2022-10-26 00:00 meloxicam All 2022-10-27 00:00 meloxicam All 2022-10-29 00:00 meloxicam All 2022-11-25 00:00 meloxicam All 2022-10-26 00:00 eletriptan All 2022-10-26 00:00 eletriptan All 2022-10-26 00:00 eletriptan All 2022-10-27 00:00 eletriptan All 2022-10-29 00:00 eletriptan All 2022-11-25 00:00 eletriptan All 2022-10-26 00:00 meloxicam All 2022-10-26 00:00 meloxicam All 2022-10-26 00:00 meloxicam All 2022-10-27 00:00 meloxicam All 2022-10-29 00:00 meloxicam All 2022-11-25 00:00 meloxicam All 2022-10-26 00:00 methocarbamol All 2022-10-26 00:00 methocarbamol All 2022-10-26 00:00 methocarbamol All 2022-10-27 00:00 methocarbamol All 2022-10-29 00:00 methocarbamol All 2022-11-25 00:00 methocarbamol All 2022-10-26 00:00 hydrocodone-acetaminophen All 2022-10-26 00:00 hydrocodone-acetaminophen All 2022-10-26 00:00 hydrocodone-acetaminophen All 2022-10-27 00:00 hydrocodone-acetaminophen All 2022-10-29 00:00 hydrocodone-acetaminophen All 2022-11-25 00:00 hydrocodone-acetaminophen All 2022-10-26 00:00 eletriptan All 2022-10-26 00:00 eletriptan All 2022-10-26 00:00 eletriptan All 2022-10-27 00:00 eletriptan All 2022-10-29 00:00 eletriptan All 2022-11-25 00:00 eletriptan All 2022-10-26 00:00 zolpidem All 2022-10-26 00:00 zolpidem All 2022-10-26 00:00 zolpidem All 2022-10-27 00:00 zolpidem All 2022-10-29 00:00 zolpidem All 2022-11-25 00:00 zolpidem All 2022-10-26 00:00 hydrocodone-acetaminophen All 2022-10-26 00:00 hydrocodone-acetaminophen All 2022-10-26 00:00 hydrocodone-acetaminophen All 2022-10-27 00:00 hydrocodone-acetaminophen All 2022-10-29 00:00 hydrocodone-acetaminophen All 2022-11-25 00:00 hydrocodone-acetaminophen All 2022-10-26 00:00 clobetasol All 2022-10-26 00:00 clobetasol All 2022-10-26 00:00 clobetasol All 2022-10-27 00:00 clobetasol All 2022-10-29 00:00 clobetasol All 2022-11-25 00:00 clobetasol All 2022-10-26 00:00 olopatadine All 2022-10-26 00:00 olopatadine All 2022-10-26 00:00 olopatadine All 2022-10-27 00:00 olopatadine All 2022-10-29 00:00 olopatadine All 2022-11-25 00:00 olopatadine All 2022-10-26 00:00 nystatin All 2022-10-26 00:00 nystatin All 2022-10-26 00:00 nystatin All 2022-10-27 00:00 nystatin All 2022-10-29 00:00 nystatin All 2022-11-25 00:00 nystatin All 2022-10-26 00:00 fluticasone propion-salmeterol All 2022-10-26 00:00 fluticasone propion-salmeterol All 2022-10-26 00:00 fluticasone propion-salmeterol All 2022-10-27 00:00 fluticasone propion-salmeterol All 2022-10-29 00:00 fluticasone propion-salmeterol All 2022-11-25 00:00 fluticasone propion-salmeterol All 2022-10-26 00:00 fluticasone propion-salmeterol All 2022-10-26 00:00 fluticasone propion-salmeterol All 2022-10-26 00:00 fluticasone propion-salmeterol All 2022-10-27 00:00 fluticasone propion-salmeterol All 2022-10-29 00:00 fluticasone propion-salmeterol All 2022-11-25 00:00 fluticasone propion-salmeterol All 2022-10-26 00:00 hydromorphone All 2022-10-26 00:00 hydromorphone All 2022-10-26 00:00 hydromorphone All 2022-10-27 00:00 hydromorphone All 2022-10-29 00:00 hydromorphone All 2022-11-25 00:00 hydromorphone All 2022-10-26 00:00 nystatin All 2022-10-26 00:00 nystatin All 2022-10-26 00:00 nystatin All 2022-10-27 00:00 nystatin All 2022-10-29 00:00 nystatin All 2022-11-25 00:00 nystatin All 2022-10-26 00:00 clobetasol All 2022-10-26 00:00 clobetasol All 2022-10-26 00:00 clobetasol All 2022-10-27 00:00 clobetasol All 2022-10-29 00:00 clobetasol All 2022-11-25 00:00 clobetasol All 2022-10-26 00:00 lidocaine-prilocaine All 2022-10-26 00:00 lidocaine-prilocaine All 2022-10-26 00:00 lidocaine-prilocaine All 2022-10-27 00:00 lidocaine-prilocaine All 2022-10-29 00:00 lidocaine-prilocaine All 2022-11-25 00:00 lidocaine-prilocaine All 2022-10-26 00:00 promethazine All 2022-10-26 00:00 promethazine All 2022-10-26 00:00 promethazine All 2022-10-27 00:00 promethazine All 2022-10-29 00:00 promethazine All 2022-11-25 00:00 promethazine All Problems date description facility 2022-10-25 00:00 Lumbar radiculopathy All 2022-10-25 00:00 Lumbar radiculopathy All 2022-10-25 00:00 Lumbar radiculopathy All 2022-10-25 00:00 Lumbar radiculopathy All 2022-10-25 00:00 Pain of right shoulder joint All 2022-10-25 00:00 Pain of right shoulder joint All 2022-10-25 00:00 Pain of right shoulder joint All 2022-10-25 00:00 Pain of right shoulder joint All 2022-10-25 00:00 Primary lactose intolerance All 2022-10-25 00:00 Primary lactose intolerance All 2022-10-25 00:00 Primary lactose intolerance All 2022-10-25 00:00 Primary lactose intolerance All 2022-10-25 00:00 Prolonged depressive adjustment reactio n All 2022-10-25 00:00 Prolonged depressive adjustment reactio n All 2022-10-25 00:00 Prolonged depressive adjustment reactio n All 2022-10-25 00:00 Prolonged depressive adjustment reactio n All 2022-10-25 00:00 Genuine stress incontinence All 2022-10-25 00:00 Genuine stress incontinence All 2022-10-25 00:00 Genuine stress incontinence All 2022-10-25 00:00 Genuine stress incontinence All 2022-10-25 00:00 Esophageal reflux finding All 2022-10-25 00:00 Esophageal reflux finding All 2022-10-25 00:00 Esophageal reflux finding All 2022-10-25 00:00 Esophageal reflux finding All 2022-10-25 00:00 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 2022-10-25 00:00 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 2022-10-25 00:00 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 2022-10-25 00:00 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 2022-10-25 00:00 Other and unspecified hyperlipidemia A ll 2022-10-25 00:00 Other and unspecified hyperlipidemia A ll 2022-10-25 00:00 Other and unspecified hyperlipidemia A ll 2022-10-25 00:00 Other and unspecified hyperlipidemia A ll 2022-10-25 00:00 Prolonged depressive reaction All 2022-10-25 00:00 Prolonged depressive reaction All 2022-10-25 00:00 Prolonged depressive reaction All 2022-10-25 00:00 Prolonged depressive reaction All 2022-10-25 00:00 Migraine, unspecified, without mention o f All intractable migraine, without mention of status migrainosus 2022-10-25 00:00 Migraine, unspecified, without mention o f All intractable migraine, without mention of status migrainosus 2022-10-25 00:00 Migraine, unspecified, without mention o f All intractable migraine, without mention of status migrainosus 2022-10-25 00:00 Migraine, unspecified, without mention o f All intractable migraine, without mention of status migrainosus 2022-10-25 00:00 Myopia All 2022-10-25 00:00 Myopia All 2022-10-25 00:00 Myopia All 2022-10-25 00:00 Myopia All 2022-10-25 00:00 Regular astigmatism All 2022-10-25 00:00 Regular astigmatism All 2022-10-25 00:00 Regular astigmatism All 2022-10-25 00:00 Regular astigmatism All 2022-10-25 00:00 Dyslipidemia All 2022-10-25 00:00 Dyslipidemia All 2022-10-25 00:00 Dyslipidemia All 2022-10-25 00:00 Dyslipidemia All 2022-10-25 00:00 Migraine All 2022-10-25 00:00 Migraine All 2022-10-25 00:00 Migraine All 2022-10-25 00:00 Migraine All 2022-10-25 00:00 Dyssomnia All 2022-10-25 00:00 Dyssomnia All 2022-10-25 00:00 Dyssomnia All 2022-10-25 00:00 Dyssomnia All 2022-10-25 00:00 Allergic rhinitis, cause unspecified A ll 2022-10-25 00:00 Allergic rhinitis, cause unspecified A ll 2022-10-25 00:00 Allergic rhinitis, cause unspecified A ll 2022-10-25 00:00 Allergic rhinitis, cause unspecified A ll 2022-10-25 00:00 Foot pain All 2022-10-25 00:00 Foot pain All 2022-10-25 00:00 Foot pain All 2022-10-25 00:00 Foot pain All 2022-10-25 00:00 Esophageal reflux All 2022-10-25 00:00 Esophageal reflux All 2022-10-25 00:00 Esophageal reflux All 2022-10-25 00:00 Esophageal reflux All 2022-10-25 00:00 Allergic rhinitis All 2022-10-25 00:00 Allergic rhinitis All 2022-10-25 00:00 Allergic rhinitis All 2022-10-25 00:00 Allergic rhinitis All 2022-10-25 00:00 Stress incontinence, female All 2022-10-25 00:00 Stress incontinence, female All 2022-10-25 00:00 Stress incontinence, female All 2022-10-25 00:00 Stress incontinence, female All 2022-10-25 00:00 Costal chondritis All 2022-10-25 00:00 Costal chondritis All 2022-10-25 00:00 Costal chondritis All 2022-10-25 00:00 Costal chondritis All 2022-10-25 00:00 Rosacea All 2022-10-25 00:00 Rosacea All 2022-10-25 00:00 Rosacea All 2022-10-25 00:00 Rosacea All 2022-10-25 00:00 Hidradenitis All 2022-10-25 00:00 Hidradenitis All 2022-10-25 00:00 Hidradenitis All 2022-10-25 00:00 Hidradenitis All 2022-10-25 00:00 Dyspareunia All 2022-10-25 00:00 Dyspareunia All 2022-10-25 00:00 Dyspareunia All 2022-10-25 00:00 Dyspareunia All 2022-10-25 00:00 Pain in joint involving shoulder region All 2022-10-25 00:00 Pain in joint involving shoulder region All 2022-10-25 00:00 Pain in joint involving shoulder region All 2022-10-25 00:00 Pain in joint involving shoulder region All 2022-10-25 00:00 Thoracic or lumbosacral neuritis or Al l radiculitis, unspecified 2022-10-25 00:00 Thoracic or lumbosacral neuritis or Al l radiculitis, unspecified 2022-10-25 00:00 Thoracic or lumbosacral neuritis or Al l radiculitis, unspecified 2022-10-25 00:00 Thoracic or lumbosacral neuritis or Al l radiculitis, unspecified 2022-10-25 00:00 Pain in limb All 2022-10-25 00:00 Pain in limb All 2022-10-25 00:00 Pain in limb All 2022-10-25 00:00 Pain in limb All 2022-10-25 00:00 Tietze's disease All 2022-10-25 00:00 Tietze's disease All 2022-10-25 00:00 Tietze's disease All 2022-10-25 00:00 Tietze's disease All 2022-10-25 00:00 Other sleep disturbances All 2022-10-25 00:00 Other sleep disturbances All 2022-10-25 00:00 Other sleep disturbances All 2022-10-25 00:00 Other sleep disturbances All 2022-10-25 00:00 Dysthymia All 2022-10-25 00:00 Dysthymia All 2022-10-25 00:00 Dysthymia All 2022-10-25 00:00 Dysthymia All 2022-10-25 00:00 Lactose intolerance, unspecified All 2022-10-25 00:00 Lactose intolerance, unspecified All 2022-10-25 00:00 Lactose intolerance, unspecified All 2022-10-25 00:00 Lactose intolerance, unspecified All 2022-10-25 00:00 Hyperlipidemia, unspecified All 2022-10-25 00:00 Hyperlipidemia, unspecified All 2022-10-25 00:00 Hyperlipidemia, unspecified All 2022-10-25 00:00 Hyperlipidemia, unspecified All 2022-10-25 00:00 Dysthymic disorder All 2022-10-25 00:00 Dysthymic disorder All 2022-10-25 00:00 Dysthymic disorder All 2022-10-25 00:00 Dysthymic disorder All 2022-10-25 00:00 Adjustment disorder with depressed mood All 2022-10-25 00:00 Adjustment disorder with depressed mood All 2022-10-25 00:00 Adjustment disorder with depressed mood All 2022-10-25 00:00 Adjustment disorder with depressed mood All 2022-10-25 00:00 Migraine, unspecified, not intractable, without All status migrainosus 2022-10-25 00:00 Migraine, unspecified, not intractable, without All status migrainosus 2022-10-25 00:00 Migraine, unspecified, not intractable, without All status migrainosus 2022-10-25 00:00 Migraine, unspecified, not intractable, without All status migrainosus 2022-10-25 00:00 Other sleep disorders All 2022-10-25 00:00 Other sleep disorders All 2022-10-25 00:00 Other sleep disorders All 2022-10-25 00:00 Other sleep disorders All 2022-10-25 00:00 Myopia, unspecified eye All 2022-10-25 00:00 Myopia, unspecified eye All 2022-10-25 00:00 Myopia, unspecified eye All 2022-10-25 00:00 Myopia, unspecified eye All 2022-10-25 00:00 Regular astigmatism, unspecified eye A 2022-10-25 00:00 Regular astigmatism, unspecified eye A 2022-10-25 00:00 Regular astigmatism, unspecified eye A 2022-10-25 00:00 Regular astigmatism, unspecified eye A 2022-10-25 00:00 Allergic rhinitis, unspecified All 2022-10-25 00:00 Allergic rhinitis, unspecified All 2022-10-25 00:00 Allergic rhinitis, unspecified All 2022-10-25 00:00 Allergic rhinitis, unspecified All 2022-10-25 00:00 Gastro-esophageal reflux disease withou t All esophagitis 2022-10-25 00:00 Gastro-esophageal reflux disease withou t All esophagitis 2022-10-25 00:00 Gastro-esophageal reflux disease withou t All esophagitis 2022-10-25 00:00 Gastro-esophageal reflux disease withou t All esophagitis 2022-10-25 00:00 Rosacea, unspecified All 2022-10-25 00:00 Rosacea, unspecified All 2022-10-25 00:00 Rosacea, unspecified All 2022-10-25 00:00 Rosacea, unspecified All 2022-10-25 00:00 Hidradenitis suppurativa All 2022-10-25 00:00 Hidradenitis suppurativa All 2022-10-25 00:00 Hidradenitis suppurativa All 2022-10-25 00:00 Hidradenitis suppurativa All 2022-10-25 00:00 Pain in right shoulder All 2022-10-25 00:00 Pain in right shoulder All 2022-10-25 00:00 Pain in right shoulder All 2022-10-25 00:00 Pain in right shoulder All 2022-10-25 00:00 Radiculopathy, lumbar region All 2022-10-25 00:00 Radiculopathy, lumbar region All 2022-10-25 00:00 Radiculopathy, lumbar region All 2022-10-25 00:00 Radiculopathy, lumbar region All 2022-10-25 00:00 Pain in unspecified foot All 2022-10-25 00:00 Pain in unspecified foot All 2022-10-25 00:00 Pain in unspecified foot All 2022-10-25 00:00 Pain in unspecified foot All 2022-10-25 00:00 Chondrocostal junction syndrome [Tietze ] All 2022-10-25 00:00 Chondrocostal junction syndrome [Tietze ] All 2022-10-25 00:00 Chondrocostal junction syndrome [Tietze ] All 2022-10-25 00:00 Chondrocostal junction syndrome [Tietze ] All 2022-10-25 00:00 Stress incontinence (female) (male) Al l 2022-10-25 00:00 Stress incontinence (female) (male) Al l 2022-10-25 00:00 Stress incontinence (female) (male) Al l 2022-10-25 00:00 Stress incontinence (female) (male) Al l 2022-10-25 00:00 Unspecified dyspareunia All 2022-10-25 00:00 Unspecified dyspareunia All 2022-10-25 00:00 Unspecified dyspareunia All 2022-10-25 00:00 Unspecified dyspareunia All 2022-10-25 00:00 Family history of stroke (cerebrovascul ar) All 2022-10-25 00:00 Family history of stroke (cerebrovascul ar) All 2022-10-25 00:00 Family history of stroke (cerebrovascul ar) All 2022-10-25 00:00 Family history of stroke (cerebrovascul ar) All 2022-10-25 00:00 Family history of stroke All 2022-10-25 00:00 Family history of stroke All 2022-10-25 00:00 Family history of stroke All 2022-10-25 00:00 Family history of stroke All 2022-10-26 00:00 Ulnar nerve entrapment at elbow All 2022-10-26 00:00 Ulnar nerve entrapment at elbow All 2022-10-26 00:00 Ulnar nerve entrapment at elbow All 2022-10-26 00:00 Ulnar nerve entrapment at elbow All 2022-10-26 00:00 Lesion of ulnar nerve All 2022-10-26 00:00 Lesion of ulnar nerve All 2022-10-26 00:00 Lesion of ulnar nerve All 2022-10-26 00:00 Lesion of ulnar nerve All 2022-10-26 00:00 Rotator cuff syndrome All 2022-10-26 00:00 Rotator cuff syndrome All 2022-10-26 00:00 Rotator cuff syndrome All 2022-10-26 00:00 Rotator cuff syndrome All 2022-10-26 00:00 Disorders of bursae and tendons in [facility] All region, unspecified 2022-10-26 00:[facility] 2022-10-26 00:00 [facility] region, unspecified 2022-10-26 00:00 [facility] region, unspecified 2022-10-26 00:00 Lesion of ulnar nerve, unspecified uppe r limb All 2022-10-26 00:00 Lesion of ulnar nerve, unspecified uppe r limb All 2022-10-26 00:00 Lesion of ulnar nerve, unspecified uppe r limb All 2022-10-26 00:00 Lesion of ulnar nerve, unspecified uppe r limb All 2022-10-26 00:00 Unspecified rotator cuff tear or rupture of All right shoulder, not specified as traumat ic 2022-10-26 00:00 Unspecified rotator cuff tear or rupture of All right shoulder, not specified as traumat ic 2022-10-26 00:00 Unspecified rotator cuff tear or rupture of All right shoulder, not specified as traumat ic 2022-10-26 00:00 Unspecified rotator cuff tear or rupture of All right shoulder, not specified as traumat ic 2022-11-25 00:00 Degeneration of cervical intervertebral disc All 2022-11-25 00:00 Other cervical disc degeneration, unspe cified All cervical region 2022-12-29 16:19 Radiculopathy, cervical region [facility] Procedures date description facility 2022-10-26 00:00 Major Joint Injection All 2022-10-26 00:00 Major Joint Injection All 2022-10-26 00:00 Major Joint Injection All 2022-10-26 00:00 Major Joint Injection All 2022-10-25 00:00 XR SHOULDER 2-3 VIEW All 2022-10-25 00:00 XR SHOULDER 2-3 VIEW All 2022-10-26 00:00 Depo-Medrol 40mg All 2022-10-26 00:00 Depo-Medrol 40mg All 2022-10-26 00:00 Depo-Medrol 40mg All 2022-10-26 00:00 Depo-Medrol 40mg All Results/Labs test date author facility value unit interpret ation Result panel 1 (unknown) (no (unknown) (unknown) (no value) (units (unk nown) date) unknown) (unknown) (no (unknown) (unknown) 12/29/22 (units (unkno wn) date) unknown) (unknown) (no (unknown) (unknown) 1. Mild cervical (units (unknown) date) spondylitic unknown) change. (unknown) (no (unknown) (unknown) 10.5 mm. (units (unkno wn) date) unknown) (unknown) (no (unknown) (unknown) [address] [place] [address] (units (unknown) date) unknown) (unknown) (no (unknown) (unknown) 2. No canal (units (un known) date) stenosis or unknown) significant foraminal stenosis. (unknown) (no (unknown) (unknown) 3. (units (unkno wn) date) [id number] unknown) left foraminal narrowing at C5-C6. (unknown) (no (unknown) (unknown) : [id number] (units (u nknown) date) unknown) (unknown) (no (unknown) (unknown) Accession (units (unkn own) date) Number: unknown) [id number] (unknown) (no (unknown) (unknown) Age/Sex: 37 / F (units (unknown) date) Date of Service: unknown) (unknown) (no (unknown) (unknown) Alignment and (units ( unknown) date) curvature: There unknown) is normal bony alignment. (unknown) (no (unknown) (unknown) HERB May (units ( unknown) date) [id number] unknown) (unknown) (no (unknown) (unknown) Approved by: (units (u nknown) date) elvin Farris M.D. on 12/30/2022 at 8:11 (unknown) (no (unknown) (unknown) C2-3: Normal (units (u nknown) date) appearance. unknown) (unknown) (no (unknown) (unknown) C3-4: Normal (units (u nknown) date) appearance. unknown) (unknown) (no (unknown) (unknown) C4-5: Normal (units (u nknown) date) appearance. unknown) (unknown) (no (unknown) (unknown) C5-6: Diffuse (units ( unknown) date) disc bulge, unknown) eccentric to the left. AP diameter of the canal is (unknown) (no (unknown) (unknown) C6-7: Very (units (unk nown) date) minimal central unknown) posterior disc protrusion which does not abut the (unknown) (no (unknown) (unknown) C7-T1: Normal (units ( unknown) date) appearance. unknown) (unknown) (no (unknown) (unknown) COMPARISON: (units (un known) date) None. unknown) (unknown) (no (unknown) (unknown) : 1985 (units (unknown) date) Acct:[id number] unknown) (unknown) (no (unknown) (unknown) Dictated by: (units (u nknown) date) Fidencio Carrera, elvin Whittaker on 12/30/2022 at 8:06 (unknown) (no (unknown) (unknown) FINDINGS: (units (unkn own) date) unknown) (unknown) (no (unknown) (unknown) IMPRESSION: (units (un known) date) unknown) (unknown) (no (unknown) (unknown) INDICATIONS: (units (u nknown) date) RADICULOPATHY, unknown) CERVICAL REGION (unknown) (no (unknown) (unknown) Image quality: (units (unknown) date) Excellent. unknown) (unknown) (no (unknown) (unknown) [facility] (units (unknown) date) unknown) (unknown) (no (unknown) (unknown) Loc: MRI (units (unkno wn) date) unknown) (unknown) (no (unknown) (unknown) Magnetic (units (unkno wn) date) Resonance Report unknown) (unknown) (no (unknown) (unknown) Marrow: Marrow (units (unknown) date) is normal in unknown) overall signal. (unknown) (no (unknown) (unknown) Noncontrast (units (un known) date) sagittal T1 spin unknown) echo and T2 fast spin echo, sagittal STIR, (unknown) (no (unknown) (unknown) Ordering (units (unkno wn) date) Provider: unknown) Hermelindo Love MD (unknown) (no (unknown) (unknown) PROCEDURE: MR (units ( unknown) date) CERVICAL SPINE unknown) W/O CON (unknown) (no (unknown) (unknown) Paraspinous soft (units (unknown) date) tissues: No unknown) paravertebral masses or suspicious enhancement. (unknown) (no (unknown) (unknown) Patient: (units (unkno wn) date) [place] MR# (unknown) (no (unknown) (unknown) Procedure: MR (units ( unknown) date) cervical spine w unknown) con (unknown) (no (unknown) (unknown) Signed (units (unkno wn) date) unknown) (unknown) (no (unknown) (unknown) Spinal cord: (units (u nknown) date) Visualized spinal unknown) cord has normal size and signal. No cerebellar (unknown) (no (unknown) (unknown) TECHNIQUE: (units (unk nown) date) unknown) (unknown) (no (unknown) (unknown) There is mild (units ( unknown) date) left lateral unknown) recess stenosis. There is left uncovertebral joint (unknown) (no (unknown) (unknown) canal stenosis. (units (unknown) date) AP diameter of unknown) the canal is 11.3 mm. No significant foraminal (unknown) (no (unknown) (unknown) cervical (units (unkno wn) date) unknown) (unknown) (no (unknown) (unknown) cord. No (units (unkno wn) date) unknown) (unknown) (no (unknown) (unknown) foraminal (units (unkn own) date) oblique unknown) (unknown) (no (unknown) (unknown) herniation. No (units (unknown) date) abnormal unknown) intramedullary enhancement. (unknown) (no (unknown) (unknown) hypertrophy. The (units (unknown) date) right foramen is unknown) patent. Mild to moderate left foraminal (unknown) (no (unknown) (unknown) narrowing. (units (unk nown) date) unknown) (unknown) (no (unknown) (unknown) sagittal T2 fast (units (unknown) date) spin echo, axial unknown) gradient echo or T2 fast spin echo through the (unknown) (no (unknown) (unknown) spine. (units (unkno wn) date) unknown) (unknown) (no (unknown) (unknown) tonsillar (units (unkn own) date) unknown) Social History date description facility 2022-10-26 00:00 Former smoker All 2022-10-26 00:00 Former smoker All 2022-10-26 00:00 Former smoker All 2022-10-26 00:00 Former smoker All Vital Signs No information.
[2023-01-23 07:01] VITALS: BP 148/99
[2023-01-23] MEDS ORDERED: CYCLOBENZAPRINE 10 MG TABLET PO STA (07:15)
[2023-01-23] MEDS ORDERED: oxyCODONE 5 MG TABLET PO STA (07:15)
[2023-01-23] MEDS ORDERED: ACETAMINOPHEN 325 MG TABLET PO STA (07:15)
[2023-01-23] MEDS ORDERED: LIDOCAINE PATCH 5% TOP STA (07:15)
--- NOTE | 2023-01-23 07:18 | ED Physician Documentation ---
History of Present Illness - Stated complaint Stated Complaint: LFT SHOULDER/ARM PAIN - Chief complaint Chief Complaint: Trauma Ext - History obtained from History obtained from: Patient - Additonal information Additional information: Patient is a 37-year-old female presenting for evaluation of pain to the left side of her neck, posterior shoulder and upper back that she woke up with this morning. The pain feels sharp and is worse with certain movements.Does not radiate into her arms. She denies any known injury or trauma. She reports trying to lay on her right side but has a known rotator cuff injury to that side and it did not help. She has not tried any medications this morning. She denies chest pain or shortness of breath. 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 : None Musculoskeletal: None Derm: None - Past Surgical History Past Surgical History: Yes General: Cholecystectomy /CUSHION INSTALLER: Endometrial ablation, Hysterectomy, Oophrectomy HEENT: Tonsil/Adenoidectomy - Present Medications Home Medications: Ambulatory Orders Medication Instructions Recorded Confirmed Fexofenadine [Corine] 180 mg PO DAILY 02/03/15 09/18/18 Montelukast [Singulair] 10 mg PO QPM 08/06/16 09/18/18 Cholecalciferol (Vitamin D3) 1 cap PO DAILY 09/18/18 09/18/18 [Vitamin D3] Loratadine [Claritin] 10 mg PO DAILY 09/18/18 09/18/18 Cyclobenzaprine [Flexeril] 10 mg PO TID PRN #20 tablet 01/23/23 Lidocaine Patch 5% [Lidoderm Patch] 1 patch TOP DAILY PRN #10 patch 01/23/23 - Allergies Allergies/Adverse Reactions: Allergies Allergy/AdvReac Type Severity Reaction Status Date / Time cinnamon Allergy Unknown Verified 04/26/22 09:53 - Social History Does the pt smoke?: No Smoking Status: Never smoker Does the pt drink ETOH?: Yes Does the pt have substance abuse?: No - Immunizations Immunizations are current?: Yes - POLST Patient has POLST: No PD ED PE NORMAL - General General: Alert and oriented X 3, No acute distress, Well developed/nourished - HEENT HEENT: Atraumatic - Neck Neck: Supple, no meningeal sign, No bony TTP, Other (To fully range of motion her neck but reports more pain when looking to the right versus the left) - Cardiac Cardiac: RRR, No murmur - Respiratory Respiratory: No respiratory distress, Clear bilaterally - Back Back: No CVA TTP, No spinal TTP - Derm Derm: Warm and dry - Extremities Extremities: No deformity, Other (Reports pain to left posterior shoulder when abducting past 90 degrees; able to touch left hand to right shoulder without issue) - Neuro Neuro: Alert and oriented X 3, No motor deficit, No sensory deficit, Normal speech PD ED PE EXPANDED - Back Back visual: 1 - tenderness (spasm) Results - Vitals Vitals: Vital Signs - 24 hr 01/23/23 06:55 Temperature 36.6 C Heart Rate 76 Respiratory 18 Rate Blood Pressure 148/99 H O2 Saturation 100 Oxygen O2 Source Room air PD Medical Decision Making - ED course ED course: Patient presenting for evaluation of atraumatic pain to her left neck and upper back region that woke her up this morning. On exam patient has visible spasm And tightness Overlying the left trapezius. There is no erythema or reports of a fever to suggest infection.No bony tenderness and no mechanism to suggest fracture or dislocation. Neurovascularly intact. History and exam suggest muscle spasm as etiology and discussed continued supportive care to include muscle relaxers, lidocaine patches and anti-inflammatories. She was also given a single dose of oxycodone here to help with her acute pain while other medications have time to take effect. Patient is counseled on need for close follow-up if symptoms or not improving and concerning symptoms to return for. Departure - Departure Disposition: 01 Home, Self Care Clinical Impression: Muscle spasm of left shoulder area Condition: Stable Instructions: ED Spasm Neck No Injury Prescriptions: Cyclobenzaprine [Flexeril] 10 mg PO TID PRN #20 tablet PRN Reason: Spasms Lidocaine Patch 5% [Lidoderm Patch] 1 patch TOP DAILY PRN #10 patch PRN Reason: pain Comments: Your symptoms this morning appear to be related to spasms of the muscles in the left side of your neck and shoulder region. I am sending prescriptions to [facility] in [place] to help you with your symptoms including a muscle relaxer and lidocaine patches. Lidocaine patches can be kept on for up to 12 hours. The time you do not have the lidocaine patch on you can try heat to the area. You could also try ice. I would also continue with an anti-inflammatory such as ibuprofen or acetaminophen. You did receive a dose of a narcotic pain medication this morning.Please do not drive for the next 6 hours. Please continue to take it easy at home with no activities requiring lifting, pushing or pulling or activities that may exacerbate your pain. If your symptoms or not improving over the next several days I would recommend close follow-up with your primary care provider. If you develop any new or worsening symptoms such as increased pain, fever, pain in new location or any new concerns please return to the emergency department. Discharge Date/Time: 01/23/23 07:37
== END 2023-01-23 07:37 | disposition home or self-care (01) ==
LOC: ED 06:52
DX: M62.838 Other muscle spasm (principal)
CPT/HCPCS: 99282; 99283; A9270

== ENCOUNTER 2023-05-01 20:12 | Outpatient (CLI) | payer OTHER | END 2023-05-01 23:59 | disposition critical access hospital (66) | LOC: EMS 20:12 | DX: F10.129 Alcohol abuse with intoxication, unspecified (principal); R11.2 Nausea with vomiting, unspecified; R26.2 Difficulty in walking, not elsewhere classified | CPT/HCPCS: A0425; A0427 ==

== ENCOUNTER 2023-05-01 20:41 | Emergency (ER) | payer OTHER ==
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
[2023-05-01] MEDS ORDERED: SODIUM CHLORIDE 0.9% 1,000 ML IV STA (21:00)
[2023-05-01] MEDS ORDERED: ONDANSETRON 4 MG/2 ML VIAL IVP STA (21:11)
[2023-05-01 21:12] LABS: BASOPHILS % (AUTO) 0.5 %; EOSINOPHILS % (AUTO) 0.2 %; HCT - HEMATOCRIT 37.1 % (37.0-47.0); HGB - HEMOGLOBIN 12.1 g/dL (12.0-16.0); LYMPHOCYTES # (AUTO) 1.5 10^3/uL (1.5-3.5); LYMPHOCYTES % (AUTO) 23.2 %; MEAN CORPUSCULAR HEMOGLOBIN 29.6 pg (27.0-31.0); MEAN CORPUSCULAR HGB CONC 32.6 g/dL (32.0-36.0); MEAN CORPUSCULAR VOLUME 90.7 fL (81.0-99.0); MONOCYTES # (AUTO) 0.5 10^3/uL (0.0-1.0); MONOCYTES % (AUTO) 7.1 %; NEUTROPHILS # (AUTO) 4.6 10^3/uL (1.5-6.6); NEUTROPHILS % (AUTO) 68.7 %; PLT - PLATELET COUNT 244 10^3/uL (130-450); RED BLOOD COUNT 4.09 10^6/uL (4.20-5.40); WHITE BLOOD COUNT 6.7 x10^3/uL (4.8-10.8)
[2023-05-01 21:24] LABS: ALBUMIN 3.7 g/dL (3.2-5.5); ALBUMIN/GLOBULIN RATIO 1.3 (1.0-2.2); BILIRUBIN,TOTAL 0.4 mg/dL (0.2-1.0); CREATININE 0.7 mg/dL (0.4-1.0); ETOH - ETHANOL 136.4 mg/dL; POTASSIUM 3.3 mmol/L (3.5-5.0); TOTAL PROTEIN 6.5 g/dL (6.7-8.2)
[2023-05-02] MEDS ORDERED: ONDANSETRON ODT 4 MG Prepack 2 TL PRN (00:37)
[2023-05-02 01:01] VITALS: BP 116/82
== END 2023-05-02 00:57 | disposition home or self-care (01) ==
LOC: EDUNIT# → ED 20:41
DX: F10.920 Alcohol use, unspecified with intoxication, uncomplicated (principal); Y90.6 Blood alcohol level of 120-199 mg/100 ml; E87.6 Hypokalemia
CPT/HCPCS: 36415; 80053; 80320; 83690; 85025; 96374; 99284

== ENCOUNTER 2023-07-11 10:01 | Outpatient (CLI) | payer OTHER ==
--- NOTE | 2023-07-11 15:26 | MRI Report ---
PROCEDURE: KNEE WO - LT INDICATIONS: INTERNAL DERANGMENT OF LEFT KNEE TECHNIQUE: Noncontrast sagittal PD fast spin echo and T2 fast spin echo with fat saturation, sagittal 3-D gradie nt sequence with fat saturation; coronal T1 spin echo and PD fast spin echo with fat saturation, and axial PD fast spin echo with fat saturation through the knee. COMPARISON: None. FINDINGS: Image quality: Excellent. Menisci: The medial and lateral menisci demonstrate normal morphology and internal signal. The meni scal root ligaments appear intact. Cruciate ligaments: The anterior and posterior cruciate ligaments appear intact. Medial structures: The medial collateral ligament appears intact. The posterior oblique ligament, s emimembranosus tendon insertions, and oblique popliteal ligament, and meniscocapsular junction appear intact. Visualized portions of the pes anserinus tendons appear normal. No abnormal bursal fluid. Lateral structures: The lateral collateral ligament, long and short heads of the biceps femoris tend on appear intact. The popliteus tendon appears normal; the popliteofibular ligament appears intact. Iliotibial band appears normal. Anterior structures: Distal quadriceps tendinosis is seen. The patella tendon is intact. Patellar ali gnment is normal. No femoral trochlear dysplasia or ventral trochlear prominence. No edema in the i nfrapatellar fat pad. Bones and cartilage: No bone marrow contusions or fractures. 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 The cartilage of the medial and lateral femorotibial compartments appears normal in thickness Joint space: There is small knee joint fluid. There is a 1.7 x 0.9 x 4 cm Ambrosio's cyst. Normal appe aring synovial plicae are incidentally noted. IMPRESSION: 1. 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 No marrow jigar a. No fracture or dislocation. 2. Small amount of joint fluid. Small Ambrosio cyst as above. 3. The cruciate ligaments are intact. 4. No evidence of focal meniscal tear. 5. Low-grade distal quadriceps tendinosis at its superior patella insertion. The patella tendon is in tact. Reviewed by: Obie Rodriguez MD on 07/11/2023 3:25 PM PDT Approved by: Obie Rodriguez MD on 07/11/2023 3:25 PM PDT Station ID: [id number]
== END 2023-07-11 10:02 | disposition home or self-care (01) ==
LOC: DI 10:01
PROVIDERS: ATTEND Family Medicine
DX: M94.262 Chondromalacia, left knee (principal); M71.22 Synovial cyst of popliteal space [Baker], left knee; M25.462 Effusion, left knee; M67.962 Unspecified disorder of synovium and tendon, left lower leg

== ENCOUNTER 2024-01-08 14:08 | Emergency (ER) | payer OTHER ==
[2024-01-08 14:28] VITALS: BP 127/87; O2SAT 100
--- NOTE | 2024-01-08 16:13 | ED Physician Documentation ---
History of Present Illness - Stated complaint Stated Complaint: ALLERGIC REACTION - Chief complaint Chief Complaint: Allergic Rx - History obtained from History obtained from: Patient - History of Present Illness Timing: How many days ago (3) Pain level max: 0 Pain level now: 0 - Additonal information Additional information: Patient states she had an MRI with and without contrast a few days ago. After the MRI developed a diffuse rash and itching. Not relieved with benadryl or zyrtec at home. No dyspnea. Denies any possibility of . Review of Systems Constitutional: denies: Fever, Chills GI: denies: Vomiting, Diarrhea Skin: denies: Rash Musculoskeletal: denies: Neck pain, Back pain Neurologic: denies: Headache PD PAST MEDICAL HISTORY - Past Medical History Cardiovascular: None Respiratory: Asthma Neuro: Migraines Endocrine/Autoimmune: None GI: None [employer]: Ovarian cysts : None Musculoskeletal: None Derm: None - Past Surgical History Past Surgical History: Yes General: Cholecystectomy /[employer]: Endometrial ablation, Hysterectomy, Oophrectomy HEENT: Tonsil/Adenoidectomy - Present Medications Home Medications: Ambulatory Orders Medication Instructions Recorded Confirmed Albuterol Sulfate [Proair 90 mcg IH Q4HR PRN 05/01/23 05/01/23 Respiclick] Cetirizine [ZyrTEC] 10 mg PO DAILY 05/01/23 05/01/23 Gabapentin [Neurontin] 300 mg PO TID 05/01/23 05/01/23 Ibuprofen [Motrin] 1 tablet PO Q8H PRN 05/01/23 05/01/23 Montelukast Sodium 10 mg PO DAILY 05/01/23 05/01/23 predniSONE [Deltasone] 40 mg PO DAILY #10 tablet 01/08/24 - Allergies Allergies/Adverse Reactions: Allergies Allergy/AdvReac Type Severity Reaction Status Date / Time cat dander Allergy Unknown Verified 01/08/24 14:20 cinnamon Allergy Unknown Verified 01/08/24 14:20 grass pollen Allergy Unknown Verified 01/08/24 14:20 - Social History Does the pt smoke?: No Smoking Status: Never smoker Does the pt drink ETOH?: Yes Does the pt have substance abuse?: No - Immunizations Immunizations are current?: Yes - POLST Patient has POLST: No PD ED PE NORMAL - Vitals Vital signs reviewed: Yes - General General: Alert and oriented X 3, No acute distress - HEENT HEENT: Moist mucous membranes - Neck Neck: Supple, no meningeal sign, Other (no stridor or wheezing. ) - Cardiac Cardiac: RRR, Strong equal pulses - Respiratory Respiratory: No respiratory distress, Clear bilaterally - Abdomen Abdomen: Soft, Non tender, Non distended - Derm Derm: Warm and dry, Other (diffuse papular exanthem with excoriation romero. ) - Neuro Neuro: Alert and oriented X 3 - Psych Psych: Normal mood, Normal affect Results - Vitals Vitals: Vital Signs - 24 hr 01/08/24 01/08/24 14:17 16:21 Temperature 36.6 C 36.6 C Heart Rate 67 67 Respiratory 16 16 Rate Blood Pressure 127/87 H 127/87 H O2 Saturation 100 100 Oxygen O2 Source Room air PD Medical Decision Making - ED course Complexity details: considered differential, d/w patient ED course: Patient with a rash following an MRI with contrast. Appears to be an allergic reaction. No anaphylaxis. No stridor or wheezing. Will place on steroids for home. Patient counseled regarding signs and symptoms for which I believe and urgent re-evaluation would be necessary. Patient with good understanding of and agreement to plan and is comfortable going home at this time This document was made in part using voice recognition software. While efforts are made to proofread this document, sound alike and grammatical errors may occur. Departure - Departure Disposition: 01 Home, Self Care Clinical Impression: Allergic reaction Qualifiers: Encounter type: initial encounter Qualified Code(s): T78.40XA - Allergy, unspecified, initial encounter Condition: Good Instructions: ED Allergic Reaction General Other Follow-Up: DK CALL DO [Primary Care Provider] - Prescriptions: predniSONE [Deltasone] 40 mg PO DAILY #10 tablet Comments: Your prescription was sent to the [facility] pharmacy. Please take all steroids until gone. This will help to resolve the allergic reaction. Next time you have an MRI, make sure to tell them that you had a reaction to the dye,as they can pretreat you with steroids and Benadryl to help prevent this. Forms: PCP List Discharge Date/Time: 01/08/24 16:21
[2024-01-08] MEDS: predniSONE 20 MG TABLET PO STA (16:16)
== END 2024-01-08 16:21 | disposition home or self-care (01) ==
LOC: ED 14:08
DX: R21 Rash and other nonspecific skin eruption (principal); T50.8X5A Adverse effect of diagnostic agents, initial encounter; J45.909 Unspecified asthma, uncomplicated
CPT/HCPCS: 99283; J7512